=== PATIENT | female | born 1930 | race Caucasian/White ===

== ENCOUNTER → 2016-08-19 | Outpatient (CLI) | payer OTHER, MEDICARE | LOC: FIMAGING 10:03 | PROVIDERS: ATTEND Internal Medicine | DX: Z12.31 Encounter for screening mammogram for malignant neoplasm of breast (principal); Z85.3 Personal history of malignant neoplasm of breast; Z80.3 Family history of malignant neoplasm of breast | CPT/HCPCS: G0202 ==

== ENCOUNTER 2016-12-20 22:54 | Observation (INO) | payer OTHER, MEDICARE ==
--- NOTE | 2016-12-20 23:19 | CPEKG ---
Heart Rate: 83 RR Interval: 723 QRSD Interval: 98 QT Interval: 412 QTC Interval: 485 QRS [place]: 89 T Wave [place]: 4 EKG Severity - ABNORMAL ECG - EKG Impression: ATRIAL FLUTTER, A-RATE 294 EKG Impression: ANTERIOR INFARCT, OLD Electronically Signed By: Caesar Key 21-Dec-2016 05:21:52
--- NOTE | 2016-12-20 23:24 | EDPHY ---
H & P Stated Complaint: Chest Pressure, Dizziness, Shortness of Breathe since 9pm HPI/ROS: Chief Complaint: Chest pain, nausea, clammy HPI: 85-year-old woman with past medical history coronary artery disease, renal insufficiency was in her usual state of health when at 9 o'clock this evening she had the sudden onset of nausea, clamminess and tightness across her chest. It is about a 5/10. She has a history of a myocardial infarction in the past but this is not feel the same. She states she is feeling feeling her heart beat which is unusual for her. No recent illness. No nausea or vomiting. No fevers or chills. No recent changes in her oxygen requirements, she is on supplemental oxygen 24 hours a day. ROS: 10 point Review of Systems is negative except as noted in the HPI. PMH: Type 2 diabetes, asthma, pulmonary fibrosis, coronary artery disease status post stenting in 2003, gastric ulcer, breast cancer, glaucoma Medications: Diovan, simvastatin, Protonix, probenecid, from some I would, cardia, room again, aspirin, Citrucel, Spiriva Social History: No smoking, no alcohol, no recreational drug use Family History: non-contributory Physical Exam: Gen: Awake, Alert, No Distress HEENT: Nose: no rhinorrhea Eyes: PERRLA, EOMI Mouth: Moist mucosa Neck: Supple, no JVD Chest: nontender, lungs clear to auscultation Heart: S1, S2 normal, irregularly irregular, 3 in 6 systolic murmur Abd: Soft, non-tender, no guarding Back: no CVA tenderness, no midline tenderness Ext: no edema, non-tender Skin: no rash Neuro: CN II-XII intact, Sensation grossly intact, Strength 5/5 in bilateral upper and lower extremities - Personal History Tetanus Vaccine Date: 2005 - Medical/Surgical History Hx Asthma: Yes Hx Chronic Respiratory Disease: No Hx Diabetes: Yes Hx Cardiac Disease: Yes Hx Renal Disease: No Hx Cirrhosis: No Hx Alcoholism: No Hx HIV/AIDS: No Hx Splenectomy or Spleen Trauma: No Other PMH: mi stents, gi bleed, trnsfusions, glaucoma, kidney stones, br cancer & surg, knee surg, pna,pulmonary fibrosis. - Social History Smoking Status: Never smoked Constitutional: Initial Vital Signs Temperature (C) 36.6 C 12/20/16 23:13 Heart Rate 82 08/04/17 23:13 Respiratory Rate 15 12/20/16 23:13 Blood Pressure 160/62 H 12/20/16 23:13 O2 Sat (%) 88 L 12/20/16 23:13 O2 Delivery Mode Nasal Cannula O2 (L/minute) 2 Allergies/Adverse Reactions: clopidogrel bisulfate [From Plavix] Allergy (Severe, Verified 05/18/16 11:41) Other-Enter Comments kiwi [Kiwi (Actinidia Chinensis)] Allergy (Severe, Verified 05/18/16 11:41) Anaphylaxis naproxen [Naproxen] Allergy (Intermediate, Verified 05/18/16 11:41) Rash niacin [Niacin] Allergy (Intermediate, Verified 05/18/16 11:41) Rash allopurinol [Allopurinol] Allergy (Unknown, Verified 05/18/16 11:41) Unknown gabapentin [Gabapentin] Allergy (Unknown, Verified 05/18/16 11:41) Unknown metronidazole [Metronidazole] Allergy (Unknown, Verified 05/18/16 11:41) Unknown ethionamide [Ethionamide] Allergy (Verified 05/18/16 11:41) isoniazid Allergy (Verified 05/18/16 11:41) neomycin [Neomycin] Allergy (Verified 05/18/16 11:41) Nitroimidazoles [Nitroimidazole Derivatives] Allergy (Verified 05/18/16 11:41) risedronate sodium Allergy (Verified 05/18/16 11:41) vitamin B complex Allergy (Verified 05/18/16 11:41) CARDIOVASCULAR DRUGS Allergy (Uncoded 05/18/16 11:41) Home Medications: Medication Instructions Recorded Aspirin [Aspirin 81mg (*)] 81 mg PO DAILY 08/17/11 Bimatoprost 0.03% [LUMIGAN 0.03%] 1 drops EACHEYE HS 08/17/11 Furosemide [Lasix 40 MG (*)] 40 mg PO DAILY 08/17/11 Pantoprazole Sodium [Protonix 40mg 40 mg PO DAILY 08/17/11 (*)] Probenecid 500 mg PO BID 08/17/11 Valsartan [Diovan] 160 mg PO DAILY 08/17/11 Diltiazem HCl [Cartia XT 180mg] 180 mg PO BID 10/02/11 Tiotropium Inhaler [Spiriva 1 puffs IH DAILY 10/02/11 Inhaler (RX)] Albuterol [Proventil Inhaler HFA 2 puffs IH DAILY PRN 05/11/15 (*)] Beclomethasone Qvar 40 [Qvar 40 1 puffs IH BID 05/11/15 (*)] Brimonidine Tartrate 1 drop EACHEYE HS 05/11/15 Herbals/Supplements -Info Only 1 ea PO DAILY 05/11/15 Simvastatin [Zocor] 20 mg PO DAILY18 05/11/15 metFORMIN HCL [Glucophage 500 mg 500 mg PO BIDMEAL 05/11/15 (*)] Centrum Complete Multivit Tab 01/16/16 Citracal + D 01/16/16 Cephalexin [Keflex (*)] 500 mg PO TID #21 cap 05/18/16 Medical Decision Making - Diagnostics EKG Interpretation: ECG time 11:16 p.m., atrial flutter with a variable conduction, atrial rate of 294, ventricular rate of 83, no acute ST wave changes. ECG is unchanged as compared to an ECG from 01/16/2016. Imaging Results: Imaging Impressions Chest X-Ray 12/20/16 23:23 Impression: 1. No evidence for aspiration pneumonia. 2. Chronic large hiatal hernia. 3. Cardiomegaly with pulmonary venous hypertension suggests early or impending CHF. Imaging: I viewed and interpreted images myself ED Course/Re-evaluation: 85-year-old woman with new atrial flutter which is ventricularly rate controlled. Chronic renal insufficiency changes. No electrolyte abnormalities at this time. Troponin is negative. Will require admission for further care - Data Points Laboratory Results: Laboratory Results 12/20/16 23:02 12/20/16 23:02 12/20/16 12/20/16 23:02 23:02 WBC 6.39 10^3/uL 10^3/uL (3.80-9.50) RBC 3.69 10^6/uL L 10^6/uL (4.18-5.33) Hgb 11.5 g/dL L g/dL (12.6-16.3) Hct 36.8 % L % (38.0-47.0) MCV 99.7 fL fL (81.5-99.8) MCH 31.2 pg pg (27.9-34.1) MCHC 31.3 g/dL L g/dL (32.4-36.7) RDW 16.2 % H % (11.5-15.2) Plt Count 282 10^3/uL 10^3/uL (150-400) MPV 9.6 fL fL (8.7-11.7) Neut % (Auto) Not Reported Lymph % (Auto) Not Reported [place] % (Auto) Not Reported Eos % (Auto) Not Reported Baso % (Auto) Not Reported Nucleat RBC Rel Count 0.0 % % (0.0-0.2) Absolute Neuts (auto) Not Reported Absolute Lymphs (auto) Not Reported Absolute Monos (auto) Not Reported Absolute Eos (auto) Not Reported Absolute Basos (auto) Not Reported Absolute Nucleated RBC 0.00 10^3/uL 10^3/uL (0-0.01) Immature Gran % Not Reported Seg Neutrophils % 54 % % Band Neutrophils % 12 % % Lymphocytes % 28 % % Monocytes % 4 % % Eosinophils % 2 % % Immature Gran # Not Reported Absolute Seg Neuts 3.45 10^/uL 10^/uL (1.70-6.50) Absolute Band Neuts 0.77 10^3/uL H 10^3/uL (0.00-0.70) Absolute Lymphocytes 1.79 10^3/uL 10^3/uL (1.00-3.00) Absolute Monocytes 0.26 10^3/uL L 10^3/uL (0.30-0.80) Absolute Eosinophils 0.13 10^3/uL 10^3/uL (0.03-0.40) Platelet Estimate ADEQUATE (ADEQ) Hypochromasia 1+ H Sodium 144 mEq/L mEq/L (134-144) Potassium 4.5 mEq/L mEq/L (3.5-5.2) Chloride 101 mEq/L mEq/L (97-110) Carbon Dioxide 27 mEq/l mEq/l (22-31) Anion Gap 16 mEq/L mEq/L (8-16) BUN 33 mg/dL H mg/dL (7-23) Creatinine 1.7 mg/dL H mg/dL (0.6-1.0) Estimated GFR 29 Glucose 98 mg/dL mg/dL (70-100) Calcium 10.4 mg/dL mg/dL (8.5-10.4) Troponin I < 0.012 ng/mL ng/mL (0-0.034) Departure - Departure Disposition: [facility] Inpatient Acute Clinical Impression: Atrial flutter Condition: Fair Referrals: Terrance Peguero MD [Primary Care Provider] - As per Instructions
[2016-12-20 23:34] LABS: ADD MORPH? NO; ATYPICAL LYMPHOCYTE FLAG 0 (0-99); FRAGMENT RBC FLAG 0 (0-99); HEMOGLOBIN 11.5 g/dL (12.6-16.3); LIPEMIA HEMOLYSIS FLAG 80 (0-99); MEAN CELL HEMOGLOBIN 31.2 pg (27.9-34.1); MEAN PLATELET VOLUME 9.6 fL (8.7-11.7); PLATELET CLUMPS FLAG 0 (0-99); RED BLOOD CELL COUNT 3.69 10^6/uL (4.18-5.33); RED CELL DISTRIBUTION WIDTH 16.2 % (11.5-15.2)
[2016-12-20 23:45] LABS: HEMATOCRIT 36.8 % (38.0-47.0); MEAN CELL HEMOGLOBIN CONCENTR. 31.3 g/dL (32.4-36.7); MEAN CELL VOLUME 99.7 fL (81.5-99.8); PLATELET COUNT 282 10^3/uL (150-400)
[2016-12-20 23:46] LABS: ADD DIFF? YES; ADD SCAN? NO; LEFT SHIFT FLG 100 (0-99)
[2016-12-20 23:59] LABS: ANION GAP 16 mEq/L (8-16); CALCIUM 10.4 mg/dL (8.5-10.4); CARBON DIOXIDE 27 mEq/l (22-31); CHLORIDE 101 mEq/L (97-110); CREATININE 1.7 mg/dL (0.6-1.0); GLOMERULAR FILTRATION RATE 29; GLUCOSE 98 mg/dL (70-100); POTASSIUM 4.5 mEq/L (3.5-5.2); SODIUM 144 mEq/L (134-144)
[2016-12-21 00:12] LABS: HYPOCHROMIA 1+; PLATELET ESTIMATE ADEQUATE (ADEQ)
[2016-12-21 00:18] LABS: TROPONIN I < 0.012 ng/mL (0-0.034)
[2016-12-21] MEDS ORDERED: ONDANSETRON DISINTEGRATING 4 MG TAB PO PRN (01:16)
[2016-12-21] MEDS ORDERED: ONDANSETRON 4 MG/2 ML VIAL IVP PRN (01:16)
[2016-12-21] MEDS ORDERED: ACETAMINOPHEN 325 MG TAB PO PRN (01:16)
--- NOTE | 2016-12-21 03:11 | PDGENHP ---
History and Physical - Chief Complaint Nausea, fatigue, chest tightness - History of Present Illness 85 yo F w/ hx of CAD, pulmonary fibrosis, DM, and HTN presenting with acute onset nausea, fatigue, chest tightness followed by frequent watery diarrhea. Patient was in usual state of health until 10 PM on the night of admission when she felt sudden onset nausea and fatigue. She stood up to vomit but could only dry heave. During this period she also experienced some mild chest tightness. This tightness was mild, steady, did not vary with exertion, and was very different from her prior ME, which presented with typical chest pain. Then, en route to the ED w/ EMS, she began to experience frequent, watery diarrhea. This diarrhea continued for several more episodes after arrival to the ED. Of note, she had [employer] food for lunch and she lives in a nursing facility. History Information - Allergies/Home Medication List Allergies/Adverse Reactions: clopidogrel bisulfate [From Plavix] Allergy (Severe, Verified 05/18/16 11:41) Other-Enter Comments kiwi [Kiwi (Actinidia Chinensis)] Allergy (Severe, Verified 05/18/16 11:41) Anaphylaxis naproxen [Naproxen] Allergy (Intermediate, Verified 05/18/16 11:41) Rash niacin [Niacin] Allergy (Intermediate, Verified 05/18/16 11:41) Rash allopurinol [Allopurinol] Allergy (Unknown, Verified 05/18/16 11:41) Unknown gabapentin [Gabapentin] Allergy (Unknown, Verified 05/18/16 11:41) Unknown metronidazole [Metronidazole] Allergy (Unknown, Verified 05/18/16 11:41) Unknown ethionamide [Ethionamide] Allergy (Verified 05/18/16 11:41) isoniazid Allergy (Verified 05/18/16 11:41) neomycin [Neomycin] Allergy (Verified 05/18/16 11:41) Nitroimidazoles [Nitroimidazole Derivatives] Allergy (Verified 05/18/16 11:41) risedronate sodium Allergy (Verified 05/18/16 11:41) vitamin B complex Allergy (Verified 05/18/16 11:41) CARDIOVASCULAR DRUGS Allergy (Uncoded 05/18/16 11:41) Home Medications: Aspirin [Aspirin 81mg (*)] 81 mg PO DAILY 08/17/11 [Last Taken 05/10/15] Bimatoprost 0.03% [LUMIGAN 0.03%] 1 drops EACHEYE HS 08/17/11 [Last Taken ] Furosemide [Lasix 40 MG (*)] 40 mg PO DAILY 08/17/11 [Last Taken 01/15/16 07:00] Pantoprazole Sodium [Protonix 40mg (*)] 40 mg PO DAILY 08/17/11 [Last Taken ] Probenecid 500 mg PO BID 08/17/11 [Last Taken 05/10/15] Valsartan [Diovan] 160 mg PO DAILY 08/17/11 [Last Taken 05/10/15] Diltiazem HCl [Cartia XT 180mg] 180 mg PO BID 10/02/11 [Last Taken 10/02/11 09: 30] Tiotropium Inhaler [Spiriva Inhaler (RX)] 1 puffs IH DAILY 10/02/11 [Last Taken 05/10/15] Albuterol [Proventil Inhaler HFA (*)] 2 puffs IH DAILY PRN 05/11/15 [Last Taken Unknown] Beclomethasone Qvar 40 [Qvar 40 (*)] 1 puffs IH BID 05/11/15 [Last Taken ] Brimonidine Tartrate 1 drop EACHEYE HS 05/11/15 [Last Taken 05/10/15] Herbals/Supplements -Info Only 1 ea PO DAILY 05/11/15 [Last Taken Unknown] Simvastatin [Zocor] 20 mg PO DAILY18 05/11/15 [Last Taken 05/10/15] metFORMIN HCL [Glucophage 500 mg (*)] 500 mg PO BIDMEAL 05/11/15 [Last Taken 18:00] Centrum Complete Multivit Tab 01/16/16 [Last Taken Unknown] Citracal + D 01/16/16 [Last Taken Unknown] I have personally reviewed and updated: family history, medical history - Past Medical History coronary artery disease, diabetes type 2 Additional medical history: Pulmonary fibrosis - Family History Positive for: CAD - Social History Smoking Status: Never smoked Alcohol Use: None Drug Use: None Review of Systems ROS: 10pt was reviewed & negative except for what was stated in HPI & below Physical Exam Temp Pulse Resp BP Pulse Ox 37.2 C 72 18 140/72 H 96 08/05/17 01:45 12/21/16 01:45 12/21/16 01:45 12/21/16 01:45 12/21/16 01:45 O2 (L/minute) 2 Constitutional: no apparent distress, not in pain Eyes: PERRL, EOMI Ears, Nose, Mouth, Throat: moist mucous membranes, no oral mucosal ulcers Cardiovascular: regular rate and rhythym, systolic murmur (3/6 @ RUSB border, systolic) Respiratory: no respiratory distress, clear to auscultation, other (small respiratory volumes) Gastrointestinal: normoactive bowel sounds, soft, non-tender abdomen Skin: warm, no rashes or abrasions Musculoskeletal: full muscle strength, no muscle tenderness Neurologic: AAOx3, CN II-XII Intact Psychiatric: interacting appropriately, not anxious Lab Data & Imaging Review 12/20/16 23:02 12/20/16 23:02 WBC 6.39 10^3/uL (3.80-9.50) 12/20/16 23:02 RBC 3.69 10^6/uL (4.18-5.33) L 12/20/16 23:02 Hgb 11.5 g/dL (12.6-16.3) L 12/20/16 23:02 Hct 36.8 % (38.0-47.0) L 12/20/16 23:02 MCV 99.7 fL (81.5-99.8) 12/20/16 23:02 MCH 31.2 pg (27.9-34.1) 12/20/16 23:02 MCHC 31.3 g/dL (32.4-36.7) L 12/20/16 23:02 RDW 16.2 % (11.5-15.2) H 12/20/16 23:02 Plt Count 282 10^3/uL (150-400) 12/20/16 23:02 MPV 9.6 fL (8.7-11.7) 12/20/16 23:02 Neut % (Auto) Not Reported 12/20/16 23:02 Lymph % (Auto) Not Reported 12/20/16 23:02 [place] % (Auto) Not Reported 12/20/16 23:02 Eos % (Auto) Not Reported 12/20/16 23:02 Baso % (Auto) Not Reported 12/20/16 23:02 Nucleat RBC Rel Count 0.0 % (0.0-0.2) 12/20/16 23:02 Absolute Neuts (auto) Not Reported 12/20/16 23:02 Absolute Lymphs (auto) Not Reported 12/20/16 23:02 Absolute Monos (auto) Not Reported 12/20/16 23:02 Absolute Eos (auto) Not Reported 12/20/16 23:02 Absolute Basos (auto) Not Reported 12/20/16 23:02 Absolute Nucleated RBC 0.00 10^3/uL (0-0.01) 12/20/16 23:02 Immature Gran % Not Reported 12/20/16 23:02 Seg Neutrophils % 54 % 12/20/16 23:02 Band Neutrophils % 12 % 12/20/16 23:02 Lymphocytes % 28 % 12/20/16 23:02 Monocytes % 4 % 12/20/16 23:02 Eosinophils % 2 % 12/20/16 23:02 Immature Gran # Not Reported 12/20/16 23:02 Absolute Seg Neuts 3.45 10^/uL (1.70-6.50) 12/20/16 23:02 Absolute Band Neuts 0.77 10^3/uL (0.00-0.70) H 12/20/16 23:02 Absolute Lymphocytes 1.79 10^3/uL (1.00-3.00) 12/20/16 23:02 Absolute Monocytes 0.26 10^3/uL (0.30-0.80) L 12/20/16 23:02 Absolute Eosinophils 0.13 10^3/uL (0.03-0.40) 12/20/16 23:02 Platelet Estimate ADEQUATE (ADEQ) 12/20/16 23:02 Hypochromasia 1+ H 12/20/16 23:02 Sodium 144 mEq/L (134-144) 12/20/16 23:02 Potassium 4.5 mEq/L (3.5-5.2) 12/20/16 23:02 Chloride 101 mEq/L (97-110) 12/20/16 23:02 Carbon Dioxide 27 mEq/l (22-31) 12/20/16 23:02 Anion Gap 16 mEq/L (8-16) 12/20/16 23:02 BUN 33 mg/dL (7-23) H 12/20/16 23:02 Creatinine 1.7 mg/dL (0.6-1.0) H 12/20/16 23:02 Estimated GFR 29 12/20/16 23:02 Glucose 98 mg/dL (70-100) 12/20/16 23:02 Calcium 10.4 mg/dL (8.5-10.4) 12/20/16 23:02 Troponin I < 0.012 ng/mL (0-0.034) 12/20/16 23:02 Visualized and Interpreted EKG results: Yes EKG Interpretation: Positive for: other (Aflutter with variable block) Assessment & Plan Assessment: 85 yo F w/ CAD, pulmonary fibrosis, HTN, and T2DM presents with acute onset nausea, fatigue, and watery diarrhea; found to be in new aflutter with variable block upon arrival to ED. Plan: 1. Aflutter - New diagnosis, rate controlled with variable block. Patient and son deny prior hx of arrhythmias. Unclear if this is responsible for presenting symptoms or an incidental finding. [id number] of 6, clearly providing strong indication for anticoagulation. Troponin negative on admission. - Trend troponin - Cardiology consult, may benefit from cardioversion if truly symptomatic - Primary air route controller Dr. Ryena, will defer conversation about chronic AC to cardiology service - Will order TTE noting none in our system, normal systolic function and only diastolic dysfunction noted on 01/01 LHC 2. Diarrhea - Frequent, watery diarrhea with acute onset in the hour prior to presentation. It is possible this was driving presenting symptoms. Patient had [employer] food earlier in the day, so this may represent food poisoning. Although she denies recent antibiotics, she does live in a nursing facility and is at risk for C. Diff. - GI PCR pending 3. Hx of CAD - On ASA, statin, CCB, ARB as outpatient. Trending troponin as above. 4. Pulmonary fibrosis, CHRF - On multiple respiratory medications. 2 L/min O2 via NC continuously at baseline. 5. Diastolic dysfunction - Noted on 01/01 LHC; on furosemide 40 mg PO daily as outpatient. 6. T2DM - On Metformin Diet - NPO in case needs AJAY/cardioversion Ppx - LMWH for now, will need therapeutic AC moving forward Code - Full Dispo - Admit to OBS, predict quick turnaround with possible cardioversion and medication adjustment
[2016-12-21 04:11] LABS: % IMMATURE GRANULYOCYTES 0.2 % (0.0-1.1); ABSOLUTE IMMATURE GRANULOCYTES 0.02 10^3/uL (0.00-0.10); ADD DIFF? NO; ADD MORPH? NO; ADD SCAN? NO; ATYPICAL LYMPHOCYTE FLAG 0 (0-99); FRAGMENT RBC FLAG 0 (0-99); HEMATOCRIT 31.5 % (38.0-47.0); HEMOGLOBIN 9.5 g/dL (12.6-16.3); LEFT SHIFT FLG 80 (0-99); LIPEMIA HEMOLYSIS FLAG 80 (0-99); MEAN CELL HEMOGLOBIN 30.8 pg (27.9-34.1); MEAN CELL HEMOGLOBIN CONCENTR. 30.2 g/dL (32.4-36.7); MEAN CELL VOLUME 102.3 fL (81.5-99.8); MEAN PLATELET VOLUME 9.6 fL (8.7-11.7); PLATELET CLUMPS FLAG 0 (0-99); PLATELET COUNT 222 10^3/uL (150-400); RED BLOOD CELL COUNT 3.08 10^6/uL (4.18-5.33); RED CELL DISTRIBUTION WIDTH 16.4 % (11.5-15.2)
[2016-12-21 04:13] LABS: ANION GAP 11 mEq/L (8-16); CARBON DIOXIDE 25 mEq/l (22-31); CHLORIDE 106 mEq/L (97-110); CREATININE 1.5 mg/dL (0.6-1.0); GLOMERULAR FILTRATION RATE 33; GLUCOSE 114 mg/dL (70-100); MAGNESIUM 2.1 mg/dL (1.6-2.3); POTASSIUM 4.6 mEq/L (3.5-5.2); SODIUM 142 mEq/L (134-144)
[2016-12-21 04:24] LABS: TROPONIN I 0.012 ng/mL (0-0.034)
[2016-12-21] MEDS ORDERED: ENOXAPARIN 30 MG/0.3 ML SYR SC SCH (09:00)
[2016-12-21 09:38] LABS: COLOR YELLOW; LEUKOCYTE ESTERASE,URINE TRACE (NEGATIVE); NITRITE,URINE NEGATIVE (NEGATIVE)
[2016-12-21 09:41] LABS: MUCUS TRACE /lpf (NONE-1+)
--- NOTE | 2016-12-21 11:40 | PDCARPN ---
Cardiology Progress Note Chief Complaint: fatigue, atrial flutter. Assessment/Plan: Assessment: 1. Coronary artery disease status post PCI, recent coronary angiography showing patent stents. 2. renal insufficiency 3. Chronic anemia with a history of GI bleed more than 10 years ago 4. Atrial flutter in the setting of acute illness (diarrhea) Plan: - Single self terminating episode of atrial flutter that happened with acute illness i.e. diarrhea. Episode of atrial flutter cut shehas spontaneously converted to sinus rhythm. She is currently anemic with a hemoglobin of 9.5. She has had a history of significant GI bleed in the past, requiring blood transfusion. I would like her to have a 1 month monitor to assess whether she is having any episodes of atrial flutter outside of acute illness. At this time , given anemia and history of GI bleed, risk benefit ratio argues against using lifelong anticoagulation for a single episode of atrial flutter in the setting of acute illness. If on the 1 month monitor, she shows atrial flutter atrial fibrillation, consideration to be given to initiating anticoagulation. I have sent a task to her sausage linker Dr. Jay Reyna and his nurse Bradley Jovel RN in [place] to follow up on this. 12/21/16 11:36 Subjective: 85-year-old female, known to our practice. She sees Dr. Jay Reyna as an outpatient. She has a history of coronary artery disease, status post PCI, pulmonary hypertension, recent coronary angiography showing no significant progression of her disease. She was admitted yesterday after bouts of recurrent diarrhea and was found to be in atrial flutter. This morning, her atrial flutter has terminated spontaneously. Dr. Tim Fu has asked me to see the patient to give guidance regarding long-term anticoagulation. Reviewed/Discussed With: hospitalist Time Spent With Patient: 30 minutes Objective: Vital Signs (8 Hrs) Temp Pulse Resp BP Pulse Ox 12/21/16 08:00 36.8 C 66 16 132/51 H 85 L 12/21/16 03:50 36.6 C 66 18 129/84 H 98 Intake/Output (24 Hrs) 12/19/16 12/20/16 12/21/16 11:59 11:59 11:59 Intake Total 100 Balance 100 Intake: Oral (ml) 100 Other: Weight 70.9 kg Number of Voids Toilet 1 Number of Stools Toilet 1 Result Diagrams: 12/21/16 03:14 12/21/16 03:14 Cardiac Labs: Cardiac Lab Results (72 Hrs) 12/21/16 03:14 Troponin I 0.012 EKG: atrial flutter with controlled ventricular response Telemetry: sinus rhythm ICD10 Worksheet Patient Problems: Problems Problem Status Onset Chest pain Acute Pain in left shoulder Acute History of coronary artery disease Acute Atrial flutter Acute
[2016-12-21 11:59] VITALS: BP 138/53; PULSE 67; RESP 18; TEMP 98.1; O2SAT 100
--- NOTE | 2016-12-21 12:38 | GDS ---
[f rep st] DISCHARGE SUMMARY DISCHARGE DIAGNOSES: 1. Acute diarrhea, resolved. 2. Resolved atrial flutter. 3. History of coronary artery disease. 4. Pulmonary fibrosis. 5. Diastolic dysfunction. 6. Type 2 diabetes mellitus, on metformin. CONSULTANTS: Dr. Jagjit Truong, Cardiology. HOSPITAL COURSE BY PROBLEM: 1. Diarrhea: The patient presented to the hospital with perfuse watery diarrhea. GI pathogen pane l was done that did not detect any organisms. Currently, the patient's diarrhea has resolved. If s he continues to have diarrhea, it would be reasonable for her to trial Imodium. 2. Atrial flutter: Prior to discharge, the patient was seen by Dr. Truong who thought it was reasonab le for her to be discharged with a Holter monitor that will be placed on Friday. She should follow up, with her primary senior linux unix engineer, Dr. Reyna, in 2 weeks. Anticoagulation was not recommended in light of her history of GI bleeding and mild anemia on presentation. PHYSICAL EXAM: VITAL SIGNS: Blood pressure 138/53, pulse 67, respiratory rate 18, O2 sat 100% on 2 L. ABDOMEN: Soft, nontender, nondistended. No guarding or rebound tenderness. Normoactive bowel sounds. LABORATORY DATA: Pertinent labs and studies done this hospital stay, chest x-ray done 12/20/2016, s howed a hiatal hernia. No evidence for aspiration pneumonia. There was some mild cardiomegaly with pulmonary venous hypertension. DISCHARGE MEDICATIONS: Please refer to discharge medication reconciliation in [facility] for details. DISCHARGE INSTRUCTIONS: Patient will be discharged from the hospital where she should follow up at [facility] on Friday for a Holter monitor. She should seek medical attention if her diarrhea per sists. /[id number]/MODL
--- NOTE | 2016-12-21 13:48 | ECHO ---
[id number] + + [address] : : [place] [address] : : [phone] + Adult Echocardiographic Report + -----+ :Name: DONIS MICHELLE Zhen Date: 12/21/2016 08:28 AM : : Hospital Admission Number: [id number] : :: 1930 Gender: Female Height: 60 in : :Age: 85 yrs Race: WH Weight: 156 lb : :Reason For Study: New atrial flutter : : BSA: 1.7 me ters2: + -----+ MMode/2D Measurements \T\ Calculations IVSd: 1.1 cm LVIDd: 4.0 cm FS: 40.9 % MV Diam: 3.0 cm LVPWd: 1.1 cm LVIDs: 2.4 cm EDV(Teich): 70.1 ml ESV(Teich): 19.4 ml EF(Teich): 72.3 % Ao root diam: LVOT diam: 1.9 cmLVLd ap4: 6.3 cm SV(MOD-sp4): 2.7 cm LVOT area: EDV(MOD-sp4): 47.0 ml LA dimension: 2.9 cm2 64.0 ml 3.8 cm LVLs ap4: 5.8 cm ESV(MOD-sp4): 17.0 ml EF(MOD-sp4): 73.4 % Normal Measurement Values: + + :LVIDd (3.5-5.7cm) IVSd (0.6-1.1cm) LVPWd (0.6-1.1cm) Aortic Root (2.0-3.7cm)Left Atrium (1.5-4.0cm): :LV Vol(d) (76-115ml) LV Vol(s) (29-48ml) Ejec Fraction (50-65%)PV Flo (0.6- 1.2m/s) TV Flo (0.4-1.0m/s) : :MV E Flo (0.8-1.0m/s)MV A Flo (0.3-1.0m/s)LVOT Flo (0.7-1.2m/s) Asc Ao Flo ( 0.9-1.8m/s) : + + Doppler Measurements \T\ Calculations MV V2 mean: Ao mean PG: LV V1 max: MR max flo: 101.0 cm/sec 7.8 mmHg 118.0 cm/sec 451.5 cm/sec MV mean P.1 mmHgAo V2 mean: LV V1 max PG: MR max PG: MV V2 VTI: 62.2 cm 131.6 cm/sec 5.6 mmHg 81.5 mmHg MV area (1 diam): Ao V2 VTI: 46.8 cm LV V1 mean P.9 cm2 FRIEDA(I,D): 2.1 cm2 3.5 mmHg LV V1 mean: MVA(VTI): 1.5 cm2 89.0 cm/sec MV Flow area(1diam): LV V1 VTI: 33.2 cm 6.9 cm2 MR(RF 1 diam): 1.9 %SV(MV 1 diam): TR max flo: RF(MV,Ao)(1 diam): 428.8 ml 254.9 cm/sec 0.37 SI(MV 1 diam): TR max PG: RF(MV,LVOT) 255.3 ml/m2 26.0 mmHg (1diam): 0.78 SV(LVOT): 96.4 ml RAP systole: 5.0 mmHg RVSP(TR): 31.0 mmHg Left Ventricle The left ventricle is normal in size. There is mild concentric left ventricular hypertrophy. Left ventricular systolic function is normal. Ejection Fraction = 65-70%. No regional wall motion abnormalities noted. Right Ventricle The right ventricle is normal in size and function. Atria The left atrium is mildly dilated. Right atrial size is normal. The interatrial septum is intact with no evidence for an atrial septal defect. Mitral Valve Calcified mitral apparatus. There is no evidence of mitral valve prolapse. There is no mitral valve stenosis. There is mild to moderate mitral regurgitation. Tricuspid Valve Normal tricuspid valve. There is mild tricuspid regurgitation. Aortic Valve The aortic valve is trileaflet. The aortic valve opens well. Mild to moderate aortic calcification. There is no aortic stenosis. There is no aortic insufficiency. Pulmonic Valve The pulmonic valve is normal in structure and function. There is no pulmonic valvular regurgitation. Great Vessels The aortic root is normal size. Pericardium/Pleural There is no pericardial effusion. Conclusion A complete two-dimensional transthoracic echocardiogram was performed (2D, M-mode, Doppler and color flow Doppler). Left ventricular systolic function is normal. There is mild concentric left ventricular hypertrophy. Ejection Fraction = 65-70%. The left atrium is mildly dilated. Calcified mitral apparatus. There is mild to moderate mitral regurgitation. There is mild tricuspid regurgitation - normal estimated RVSP. Mild to moderate aortic calcification. Final Reading Physician: Jagjit Truong MD electronically signed on 12/21/2016 01:47 PM Ordering Physician: Familia Chua Performed By: Sarah Randall RDCS
[2016-12-21] MEDS ORDERED: [UNRECOGNIZED DRUG - OTHER] PO SCH (21:00)
[2016-12-21] MEDS ORDERED: BIMATOPROST 0.01% 2.5 ML OPHT.BTL EACHEYE SCH (21:00)
[2016-12-21] MEDS ORDERED: PROBENECID 500 MG TAB PO SCH (21:00)
[2016-12-21] MEDS ORDERED: CALCIUM CITRATE PO SCH (21:00)
[2016-12-21] MEDS ORDERED: CHOLECALCIFEROL PO SCH (21:00)
[2016-12-21] MEDS ORDERED: DILTIAZEM CD 180 MG CAP PO SCH (21:00)
[2016-12-21] MEDS ORDERED: CALCIUM CARBONATE 500 MG TAB PO SCH (21:00)
[2016-12-22] MEDS ORDERED: VALSARTAN 80 MG TAB PO SCH (09:00)
[2016-12-22] MEDS ORDERED: TIOTROPIUM INHALER 18 MCG/DOSE 5 DOSE/MDI IH SCH (09:00)
[2016-12-22] MEDS ORDERED: ASPIRIN 81 MG CHEWABLE TAB PO SCH (09:00)
[2016-12-22] MEDS ORDERED: FUROSEMIDE 40 MG TAB PO SCH (09:00)
[2016-12-22] MEDS ORDERED: ATORVASTATIN CALCIUM 20 MG TAB PO SCH (09:00)
[2016-12-22] MEDS ORDERED: PANTOPRAZOLE SODIUM 40 MG TAB PO SCH (09:00)
[2016-12-22] MEDS ORDERED: NON-FORMULARY NEW DRUG (Simvastatin [Zocor] 40 MG) PO SCH (09:00)
== END 2016-12-21 14:32 | disposition home or self-care (01) ==
LOC: EDUNIT# → F2W 12-21 01:27
PROVIDERS: ADMIT Student in an Organized Health Care Education/Training Program; ATTEND Family Medicine
DX: I48.92 Unspecified atrial flutter (principal); R19.7 Diarrhea, unspecified; R53.83 Other fatigue; I25.10 Atherosclerotic heart disease of native coronary artery without angina pectoris; J84.10 Pulmonary fibrosis, unspecified; I51.9 Heart disease, unspecified; I27.2 Other secondary pulmonary hypertension; D64.9 Anemia, unspecified; N18.9 Chronic kidney disease, unspecified; I12.9 Hypertensive chronic kidney disease with stage 1 through stage 4 chronic kidney disease, or unspecified chronic kidney disease; E11.22 Type 2 diabetes mellitus with diabetic chronic kidney disease; J45.909 Unspecified asthma, uncomplicated; K44.9 Diaphragmatic hernia without obstruction or gangrene; I25.2 Old myocardial infarction; H40.9 Unspecified glaucoma; Z79.82 Long term (current) use of aspirin; Z85.3 Personal history of malignant neoplasm of breast; Z87.442 Personal history of urinary calculi; Z79.84 Long term (current) use of oral hypoglycemic drugs; Z95.5 Presence of coronary angioplasty implant and graft; Z99.81 Dependence on supplemental oxygen
CPT/HCPCS: 71020; 93005; 93306; 97165; 99285; G0378; G8987; G8988; G8989; J1650

== ENCOUNTER → 2017-01-28 | Outpatient (CLI) | payer OTHER, MEDICARE | LOC: FIMAGING 10:15 | PROVIDERS: ATTEND Internal Medicine Critical Care Medicine | DX: J47.9 Bronchiectasis, uncomplicated (principal); J84.112 Idiopathic pulmonary fibrosis; K44.9 Diaphragmatic hernia without obstruction or gangrene ==

== ENCOUNTER → 2017-04-03 | Outpatient (CLI) | payer OTHER, MEDICARE | LOC: FIMAGING 09:50 | PROVIDERS: ATTEND Internal Medicine | DX: N63.10 Unspecified lump in the right breast, unspecified quadrant (principal) | CPT/HCPCS: 76641; G0206 ==

== ENCOUNTER → 2017-09-23 | Outpatient (CLI) | payer OTHER, MEDICARE | LOC: FIMAGING 10:43 | PROVIDERS: ATTEND Internal Medicine | DX: Z12.31 Encounter for screening mammogram for malignant neoplasm of breast (principal); Z85.3 Personal history of malignant neoplasm of breast ==

== ENCOUNTER → 2017-10-03 | Outpatient (CLI) | payer OTHER, MEDICARE | LOC: FIMAGING 10:09 | PROVIDERS: ATTEND Internal Medicine | DX: N63.20 Unspecified lump in the left breast, unspecified quadrant (principal) ==

== ENCOUNTER → 2017-10-15 | Outpatient (CLI) | payer OTHER, MEDICARE ==
[~2017-10-15] MED LIST: BUPIVACAINE 0.5% 30 ML SDV ONE; LIDOCAINE 1% 300 MG/30 ML SDV ONE; THROMBIN (BOVINE) 5,000 UNIT VIAL TP ONE
== END ==
LOC: FIMAGING 07:16
PROVIDERS: ATTEND Internal Medicine
PROC: BH01ZZZ Plain Radiography of Left Breast (ICD-10-PCS; principal; 2017-10-15)
PROC: 0HBU3ZX Excision of Left Breast, Percutaneous Approach, Diagnostic (ICD-10-PCS; principal; 2017-10-15)
DX: C50.912 Malignant neoplasm of unspecified site of left female breast (principal); Z85.3 Personal history of malignant neoplasm of breast; Z80.3 Family history of malignant neoplasm of breast; Z17.1 Estrogen receptor negative status [ER-]

== ENCOUNTER → 2017-11-07 | Outpatient (CLI) | payer OTHER, MEDICARE | LOC: BHFA 15:00 | PROVIDERS: ATTEND Internal Medicine Interventional Cardiology | DX: I25.10 Atherosclerotic heart disease of native coronary artery without angina pectoris (principal); Z95.5 Presence of coronary angioplasty implant and graft; I48.91 Unspecified atrial fibrillation; J44.9 Chronic obstructive pulmonary disease, unspecified ==

== ENCOUNTER 2017-11-21 06:21 | Observation (INO) | payer OTHER, MEDICARE ==
[2017-11-21] MEDS ORDERED: ceFAZolin 2 GM/DEXTROSE 100 ML IV ONE (06:44)
[2017-11-21] MEDS ORDERED: LR 1,000 ML IV ONE (06:45)
[2017-11-21] MEDS ORDERED: LIDOCAINE 1% 300 MG/30 ML SDV ONE ×2 (07:30→12:02)
--- NOTE | 2017-11-21 11:58 | PDHPUP ---
History & Physical Update H&P update statement: This history and physical update is based on an assessment of the patient which was completed after admission or registration (within 24 hours), but prior to the surgery/procedure. H&P update: H&P reviewed & patient examined, no change in patient's condition since H&P completed
[2017-11-21] MEDS ORDERED: NA BICARBONATE 50 MEQ/50 ML VIAL ONE (12:02)
[2017-11-21] MEDS ORDERED: THROMBIN (BOVINE) 5,000 UNIT VIAL TP ONE (12:02)
[2017-11-21] MEDS ORDERED: METHYLENE BLUE 0.5% 50 MG/10 ML AMP ONE (12:02)
[2017-11-21] MEDS ORDERED: HYDROGEN PEROXIDE 236 ML BOTTLE TP ONE (12:02)
[2017-11-21] MEDS ORDERED: BUPIVACAINE 0.25% 30 ML SDV ONE ×2 (12:02→13:37)
[2017-11-21] MEDS ORDERED: fentaNYL 100 MCG/2 ML INJ ONE ×2 (12:16→14:56)
[2017-11-21] MEDS ORDERED: PROPOFOL/EMULSION 500 MG/50 ML BOTTLE IV ONE (12:17)
--- NOTE | 2017-11-21 12:37 | PDANEPAE ---
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, asthma - Neurologic History Hx Cerebrovascular Accident: No Hx Seizures: No Hx Dementia: No - Endocrine History Hx Diabetes: Yes Endocrine History Comment: DM 2 - Renal History Hx Renal Disorders: Yes Renal History Comment: hx of kidney surgery - Liver History Hx Hepatic Disorders: No - Neurological & Psychiatric Hx Hx Neurological and Psychiatric Disorders: No - Cancer History Hx Cancer: Yes Cancer History Comment: breast cancer 1993 - Congenital Disorder History Hx Congenital Disorders: No - GI History Hx Gastrointestinal Disorders: Yes Gastrointestinal History Comment: stomach bleeding - Chronic Pain History Chronic Pain: No - Surgical History Prior Surgeries: left kidney, knee surgery, breast surgery, hysterectomy ANE Review of Systems Review of Systems: - Exercise capacity METS (RN): 2 METS ANE Patient History - Allergies Allergies/Adverse Reactions: clopidogrel bisulfate [From Plavix] Allergy (Severe, Verified 05/18/16 11:41) Other-Enter Comments kiwi [Kiwi (Actinidia Chinensis)] Allergy (Severe, Verified 05/18/16 11:41) Anaphylaxis niacin [Niacin] Allergy (Severe, Verified 11/21/17 07:16) Rash naproxen [Naproxen] Allergy (Intermediate, Verified 05/18/16 11:41) Rash allopurinol [Allopurinol] Allergy (Unknown, Verified 05/18/16 11:41) Unknown gabapentin [Gabapentin] Allergy (Unknown, Verified 05/18/16 11:41) Unknown metronidazole [Metronidazole] Allergy (Unknown, Verified 05/18/16 11:41) Unknown ethionamide [Ethionamide] Allergy (Verified 05/18/16 11:41) isoniazid Allergy (Verified 05/18/16 11:41) neomycin [Neomycin] Allergy (Verified 05/18/16 11:41) Nitroimidazoles [Nitroimidazole Derivatives] Allergy (Verified 05/18/16 11:41) risedronate sodium Allergy (Verified 05/18/16 11:41) vitamin B complex Allergy (Verified 05/18/16 11:41) CARDIOVASCULAR DRUGS Allergy (Uncoded 05/18/16 11:41) - Home Medications Home Medications: Aspirin [Aspirin 81mg (*)] 81 mg PO DAILY 12/21/16 [Last Taken 11/20/17] Bimatoprost 0.01% [Lumigan 0.01% (*)] 1 drops EACHEYE HS 12/21/16 [Last Taken ] Calcium Citrate W/Vit D [Citracal + D] 315 mg PO BID 12/21/16 [Last Taken ] Diltiazem HCl [Cartia Xt] 360 mg PO BID 12/21/16 [Last Taken 12/20/16] Furosemide [Lasix 40 MG (*)] 40 mg PO DAILY 12/21/16 [Last Taken 11/20/17] Pantoprazole Sodium [Protonix 40mg (*)] 40 mg PO DAILY 12/21/16 [Last Taken 10/03] Probenecid [Probenecid 500mg (*)] 500 mg PO BID 12/21/16 [Last Taken 11/20/17] Simvastatin [Zocor] 40 mg PO DAILY 12/21/16 [Last Taken 11/20/17] Tiotropium Inhaler [Spiriva Handihaler] 18 mcg IH DAILY 12/21/16 [Last Taken 1 Year Ago ~11/21/16] Valsartan [Diovan (*)] 80 mg PO DAILY 12/21/16 [Last Taken 11/21/17] - NPO status NPO Since - Liquids (Date): 11/21/17 NPO Since - Liquids (Time): 06:00 NPO Since - Solids (Date): 11/20/17 NPO Since - Solids (Time): 20:00 - Smoking Hx Smoking Status: Never smoked - Family Anes Hx Family Hx Anesthesia Complications: mother had a difficulty time waking up ANE Labs/Vital Signs - Vital Signs Blood Pressure: 172/66 Heart Rate: 68 Respiratory Rate: 14 O2 Sat (%): 95 Height: 152.4 cm Weight: 63.503 kg ANE Physical Exam - Airway Mallampati Score: Class 2 Mouth exam: normal dental/mouth exam - Pulmonary Pulmonary: no respiratory distress, no rales or rhonchi, clear to auscultation, reduced air movement - Cardiovascular Cardiovascular: regular rate and rhythym, no murmur, rub, or gallop - ASA Status ASA Status: IV ANE Anesthesia Plan Anesthesia Plan: GA w LMA
[2017-11-21] MEDS ORDERED: ALBUTEROL 3 ML DEYVIAL IH PRN (12:38)
[2017-11-21] MEDS ORDERED: NALOXONE HCL 0.4 MG/ML INJ IVP PRN (12:38)
[2017-11-21] MEDS ORDERED: ONDANSETRON 4 MG/2 ML VIAL IVP PRN ×2 (12:38→14:16)
[2017-11-21] MEDS ORDERED: LR 500 ML IV PRN (12:38)
[2017-11-21] MEDS ORDERED: LIDOCAINE 2% 5 ML SDV ONE (12:50)
[2017-11-21] MEDS ORDERED: ePHEDrine SULFATE 25 MG/5 ML SYR ONE (12:50)
[2017-11-21] MEDS ORDERED: ONDANSETRON 4 MG/2 ML VIAL ONE (12:50)
[2017-11-21] MEDS ORDERED: ALBUMIN 5% 250 ML BOTTLE IV ONE (12:57)
[2017-11-21] MEDS ORDERED: THROMBIN (BOVINE) 20,000 UNIT VIAL TP ONE ×2 (13:00→13:37)
--- NOTE | 2017-11-21 14:14 | POSTOPPROG ---
Post Op Note Date of Operation: 11/21/17 Surgeon: Wilbert Cullen Harvest Worker Fruit: Brenda Anesthesiologist: Edinson Anesthesia: GET(General Endotracheal) Pre-op Diagnosis: Right breast CA Post-op Diagnosis: same Indication: same Procedure: Right breast lumpectomy, R axillary SN excision, R axillary dissection Findings: Positive Preston node Inf/Abcess present in the surg proc area at time of surgery?: No Depth: Deep Incisional (Fascial) EBL: 50-100 Drains: Reji Gatica Specimen(s): Right breast mass Right axillary sentinel LN Right axillary contents
[2017-11-21] MEDS ORDERED: ONDANSETRON DISINTEGRATING 4 MG TAB PO PRN (14:16)
--- NOTE | 2017-11-21 14:57 | POSTANESTH ---
Post Anesthetic Evaluation Cardiovascular Status: Normal, Stable, Similar to Pre-Op Cond Respiratory Status: Normal, Stable, Similar to Pre-op Cond. Level of Consciousness/Mental Status: Can Participate in Eval Pain Control: Adequate, Prn Tx Ordered Nausea/Vomiting Control: Adequate, Prn Tx Ordered Complications Possibly Related to Anesthesia: None Noted
[2017-11-21] MEDS: fentaNYL 100 MCG/2 ML INJ IVP PRN ×4 (14:58→15:09)
[2017-11-21] MEDS: oxyCODONE IR 5 MG TAB PO PRN ×2 (16:22→23:08)
[2017-11-21] MEDS: ACETAMINOPHEN 325 MG TAB PO SCH ×2 (17:33→23:08)
[2017-11-21] MEDS: HYDROmorphONE/DILAUDID 1 MG/ML INJ IVP PRN ×2 (17:34→18:36)
--- NOTE | 2017-11-21 20:08 | SOAPPROG ---
SOAP Progress Note Assessment/Plan: Assessment: 86-YEAR-OLD FEMALE STATUS POST LEFT NEEDLE LOCAL LUMPECTOMY AND AXILLARY NODE DISSECTION DOING GREAT/AFEBRILE/VITAL SIGNS STABLE/MINIMAL PAIN/MINIMAL JUAN JOSE DRAINAGE/WOUND OKAY Plan: HOME IN THE A.M./FOLLOW-UP EARLY NEXT WEEK IN THE OFFICE FOR DRAIN REMOVAL 11/21/17 20:07 Objective: Vital Signs Temp Pulse Resp BP Pulse Ox 36.4 C 74 16 140/58 H 97 11/21/17 19:33 11/21/17 19:33 11/21/17 19:33 11/21/17 19:33 11/21/17 19:33 11/20/17 11/21/17 11/22/17 05:59 05:59 05:59 Intake Total 360 Output Total 200 Balance 160 ICD10 Worksheet Patient Problems: Problems Problem Status Onset Atrial flutter Acute Chest pain Acute History of coronary artery disease Acute Pain in left shoulder Acute
[2017-11-22] MEDS: ACETAMINOPHEN 325 MG TAB PO SCH ×2 (05:06→10:53)
[2017-11-22] MEDS: oxyCODONE IR 5 MG TAB PO PRN ×2 (05:06→10:53)
--- NOTE | 2017-11-22 05:35 | GOP ---
[f rep st] OPERATIVE REPORT DATE OF OPERATION: 11/21/2017 SURGEON: Wilbert Cullen MD HOOKER MACHINE TENDER: Yasmine Gutierrez NP. ANESTHESIA: Dr. Neves. ANESTHESIOLOGIST: Dr. dario ellington. PREOPERATIVE DIAGNOSIS: Left breast cancer. POSTOPERATIVE DIAGNOSIS: Left breast cancer. PROCEDURE PERFORMED: Left breast needle localization lumpectomy and sentinel node biopsy with axilla ry node dissection. FINDINGS: The target was contained in the specimen. Large sentinel node was positive and at least 2 or 3 other nodes appeared to be positive in the axillary node dissection. ESTIMATED BLOOD LOSS: Less than 20 cc. DESCRIPTION OF PROCEDURE: The patient was taken to the operating room where she received satisfactor y general endotracheal anesthesia by Dr. Neves. She was placed in the supine position with the left arm outstretched on an arm board, prepped and draped in the usual sterile fashion. Using a gamma pro be, the area of the sentinel node was localized. A transverse incision was made in the axilla and di ssection extended down through the axillary fascia. Using the gamma probe, the sentinel node was kandis ntified. It was then dissected free with electrocautery and/or hemoclips and sent to Pathology. Hem ostasis was assured. The wound was infiltrated with 0.5% Marcaine and some topical thrombin. Attention was turned to the needle localization site. An elliptical skin incision was made around th e needle insertion. A full-thickness excisional biopsy was done around the needle tract down past th e tip of the needle. The specimen was removed. Hemostasis was thoroughly obtained with electrocaute ry. The specimen was appropriately marked and sent to Pathology. The wound was infiltrated with 0.5 % Marcaine and bathed in some topical thrombin. A 15 round silicone JUAN JOSE drain was brought out through a separate stab incision and secured to the skin with a 2-0 silk suture. The subcu was then closed with 3-0 Vicryl running suture after approximation of the breast tissue. Hemostasis was assured. Th e skin was closed with 4-0 Monocryl subcuticular stitch. In the interim, the frozen section of the s entinel node was returned as positive for cancer. The axillary incision was enlarged somewhat, disse ction extended down to the chest wall alongside the pectoralis muscle. The long thoracic and thoraco dorsal nerves were identified and spared from injury. Multiple venous branches were doubly ligated a nd divided. The axillary contents were then freed up from underneath the axillary vein and removed i n continuity and sent to Pathology. Hemostasis was thoroughly obtained with hemoclips and electrocau margarette. The wound was infiltrated with 0.5% Marcaine and sprayed with some topical thrombin and then c losed in layers using a 3-0 Vicryl for the fascia and subcutaneous tissue and 4-0 Monocryl subcuticul ar stitch for the skin. A 15 round silicone JUAN JOSE drain had been brought out through a separate stab in [facility] and that was secured to the skin with a 2-0 silk suture that was connected to suction drainage . She tolerated the procedure well. There were no complications. /[id number]/MODL
[2017-11-22] MEDS ORDERED: LEVOTHYROXINE 50 MCG TAB PO SCH (06:00)
[2017-11-22 07:58] VITALS: BP 148/66
[2017-11-22] MEDS ORDERED: Herbals/Supplements -Info Only PO SCH (09:00)
[2017-11-22] MEDS ORDERED: VALSARTAN 160 MG TAB PO SCH (09:00)
[2017-11-22] MEDS ORDERED: PROBENECID 500 MG TAB PO SCH (09:00)
[2017-11-22] MEDS ORDERED: DILTIAZEM CD 180 MG CAP PO SCH (09:00)
[2017-11-22] MEDS ORDERED: PANTOPRAZOLE SODIUM 40 MG TAB PO SCH (09:00)
[2017-11-22] MEDS ORDERED: FUROSEMIDE 40 MG TAB PO SCH (09:00)
--- NOTE | 2017-11-22 09:30 | SOAPPROG ---
SOAP Progress Note Assessment/Plan: Assessment: s/p L lumpectomy and l axilary dissection doing well check and record JUAN JOSE bid S: Feeling well, minimal pain O: Dressings cdi CTAB RRR Drains with serosanguinous fluid Plan: 11/22/17 09:29 Objective: Vital Signs Temp Pulse Resp BP Pulse Ox 36.6 C 75 16 148/66 H 95 11/22/17 07:55 11/22/17 07:55 11/22/17 07:55 11/22/17 08:54 11/22/17 07:55 11/21/17 11/22/17 11/23/17 05:59 05:59 05:59 Intake Total 360 Output Total 305 Balance 55 ICD10 Worksheet Patient Problems: Problems Problem Status Onset Atrial flutter Acute Chest pain Acute History of coronary artery disease Acute Pain in left shoulder Acute
--- NOTE | 2017-11-22 09:38 | ASMTCMCOM ---
CM Note CM Note Notes: Patient is s/p L needle local lumpectomy and axillary node dissection. She lives independently at [place]. Her daughters will accompany her home and spend the day with her. She is normally independent and feeling well. No discharge needs noted. Date Signed: 11/22/2017 09:38 AM Electronically Signed By:Nkechi Tafoya RN
[2017-11-22] MEDS ORDERED: BIMATOPROST 0.01% 2.5 ML OPHT.BTL EACHEYE SCH (21:00)
[2017-11-22] MEDS ORDERED: ATORVASTATIN CALCIUM 20 MG TAB PO SCH (21:00)
== END 2017-11-22 11:03 | disposition home or self-care (01) ==
LOC: FIMAGING 06:21 → F3E 14:14
PROVIDERS: ADMIT Surgery; ATTEND Surgery
DX: C50.912 Malignant neoplasm of unspecified site of left female breast (principal); C77.9 Secondary and unspecified malignant neoplasm of lymph node, unspecified; Z17.1 Estrogen receptor negative status [ER-]; I25.2 Old myocardial infarction; N18.3 Chronic kidney disease, stage 3 (moderate); J84.10 Pulmonary fibrosis, unspecified; I48.91 Unspecified atrial fibrillation; I25.10 Atherosclerotic heart disease of native coronary artery without angina pectoris; I50.32 Chronic diastolic (congestive) heart failure; J44.9 Chronic obstructive pulmonary disease, unspecified; E11.22 Type 2 diabetes mellitus with diabetic chronic kidney disease; E78.5 Hyperlipidemia, unspecified; I13.0 Hypertensive heart and chronic kidney disease with heart failure and stage 1 through stage 4 chronic kidney disease, or unspecified chronic kidney disease; E03.9 Hypothyroidism, unspecified; I27.29 Other secondary pulmonary hypertension; Z92.3 Personal history of irradiation; Z85.3 Personal history of malignant neoplasm of breast; Z82.49 Family history of ischemic heart disease and other diseases of the circulatory system; Z80.3 Family history of malignant neoplasm of breast; Z95.5 Presence of coronary angioplasty implant and graft
CPT/HCPCS: 19125; 19281; 38745; 76098; 78195; A9520; J0690; J1170; J2405; J2704; J3010; P9041; Q9968

== ENCOUNTER 2018-03-06 08:00 | Day surgery (SDC) | payer OTHER, MEDICARE ==
[2018-03-06] MEDS ORDERED: ceFAZolin 2 GM/DEXTROSE 100 ML IV ONE (08:13)
[2018-03-06] MEDS ORDERED: LR 1,000 ML IV ONE (08:14)
[2018-03-06] MEDS ORDERED: LIDOCAINE 1% 300 MG/30 ML SDV ONE (09:02)
[2018-03-06] MEDS ORDERED: BUPIVACAINE 0.5% 30 ML SDV ONE (09:02)
[2018-03-06] MEDS ORDERED: THROMBIN (BOVINE) 5,000 UNIT VIAL TP ONE (09:02)
[2018-03-06] MEDS ORDERED: NA BICARBONATE 50 MEQ/50 ML VIAL ONE (09:03)
[2018-03-06] MEDS ORDERED: HYDROGEN PEROXIDE 473 ML BOTTLE TP ONE (09:03)
--- NOTE | 2018-03-06 09:31 | PDANEPAE ---
ANE History of Present Illness here for lumpectomy ANE Past Medical History - Cardiovascular History Hx Hypertension: Yes Hx Arrhythmias: Yes Hx Chest Pain: Yes Hx Coronary Artery / Peripheral Vascular Disease: Yes Hx CHF / Valvular Disease: Yes Hx Palpitations: Yes Cardiovascular History Comment: afib. murmur. aortic stenosis. hx of mi. CAD with stent. hyperlipidemia. secondary pulmonary htn. 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 asthma. supervisor order takers is Dr. Mcelroy - Neurologic History Hx Cerebrovascular Accident: No Hx Seizures: No Hx Dementia: No Neurologic History Comment: diabetic peripheral neuropathy - Endocrine History Hx Diabetes: Yes Endocrine History Comment: DM 2. hypothyroidism - Renal History Hx Renal Disorders: Yes Renal History Comment: hx of kidney stones. renal insuff- lithographic proofer is Dr. [facility] at [facility] - Liver History Hx Hepatic Disorders: No - Neurological & Psychiatric Hx Hx Neurological and Psychiatric Disorders: No - Cancer History Hx Cancer: Yes Cancer History Comment: currently doing radiation last day 03/05/18, no chemo. breast cancer 1993 - Congenital Disorder History Hx Congenital Disorders: No - GI History Hx Gastrointestinal Disorders: No Gastrointestinal History Comment: stomach bleeding - Other Health History Other Health History: glaucoma. under left arm blister from radiation - Chronic Pain History Chronic Pain: No - Surgical History Prior Surgeries: 11/21/17 left breast lumpectomy with Cullen. right ureter surg to unblock from stone. knee surgery. right lumpectomy. hysterectomy ANE Review of Systems Review of systems is: negative Review of Systems: - Exercise capacity METS (RN): 3 METS ANE Patient History - Allergies Allergies/Adverse Reactions: allopurinol [Allopurinol] Allergy (Verified 03/02/18 11:30) Unknown clopidogrel bisulfate [From Plavix] Allergy (Verified 03/02/18 11:30) BLEEDING ethionamide [Ethionamide] Allergy (Verified 03/06/18 08:40) gabapentin [Gabapentin] Allergy (Verified 03/02/18 11:30) Unknown isoniazid Allergy (Verified 03/06/18 08:40) kiwi [Kiwi (Actinidia Chinensis)] Allergy (Verified 03/02/18 11:30) Anaphylaxis metronidazole [Metronidazole] Allergy (Verified 03/02/18 11:30) Unknown naproxen [Naproxen] Allergy (Verified 03/02/18 11:30) Rash neomycin [Neomycin] Allergy (Verified 03/06/18 08:40) niacin [Niacin] Allergy (Verified 03/02/18 11:30) Rash Nitroimidazoles [Nitroimidazole Derivatives] Allergy (Verified 03/06/18 08:40) risedronate sodium Allergy (Verified 03/06/18 08:40) vitamin B complex Allergy (Verified 03/06/18 08:40) CARDIOVASCULAR DRUGS Allergy (Uncoded 03/06/18 08:40) - Home Medications Home medications: home medication list seen and reviewed Home Medications: Aspirin [Aspirin 81mg (*)] 12/21/16 [Last Taken 03/04/18] Bimatoprost 0.01% [Lumigan 0.01% (*)] 12/21/16 [Last Taken 03/05/18] Furosemide [Lasix 40 MG (*)] 12/21/16 [Last Taken 02/23/18] Pantoprazole Sodium [Protonix 40mg (*)] 12/21/16 [Last Taken 03/06/18 07:00] Probenecid [Probenecid 500mg (*)] 12/21/16 [Last Taken 03/05/18] Simvastatin [Zocor] 12/21/16 [Last Taken 03/05/18] Diltiazem HCl [Cartia Xt] 11/21/17 [Last Taken 03/06/18 07:00] Herbals/Supplements -Info Only 11/21/17 [Last Taken 03/05/18] Levothyroxine [Synthroid 50 mcg (*)] 11/21/17 [Last Taken 03/05/18] Losartan Potassium 03/02/18 [Last Taken 03/05/18] valACYclovir 03/06/18 [Last Taken 03/05/18] - NPO status NPO Since - Liquids (Date): 03/05/18 NPO Since - Liquids (Time): 18:00 NPO Since - Solids (Date): 03/05/18 NPO Since - Solids (Time): 17:00 - Smoking Hx Smoking Status: Never smoked - Family Anes Hx Family Hx Anesthesia Complications: mother had a difficulty time waking up ANE Labs/Vital Signs - Vital Signs Blood Pressure: 199/80 Heart Rate: 69 Respiratory Rate: 18 O2 Sat (%): 100 Height: 152.4 cm Weight: 63.503 kg ANE Physical Exam - Airway Neck exam: FROM Mallampati Score: Class 1 Mouth exam: small mouth opening - Pulmonary Pulmonary: no respiratory distress - Cardiovascular Cardiovascular: regular rate and rhythym - ASA Status ASA Status: III ANE Anesthesia Plan Anesthesia Plan: GA w LMA
[2018-03-06] MEDS ORDERED: fentaNYL 100 MCG/2 ML INJ ONE (09:32)
[2018-03-06] MEDS ORDERED: PROPOFOL/EMULSION 500 MG/50 ML BOTTLE IV ONE (09:39)
[2018-03-06] MEDS ORDERED: oxyCODONE IR 5 MG TAB PO PRN (10:24)
[2018-03-06] MEDS ORDERED: NALOXONE HCL 0.4 MG/ML INJ IVP PRN (10:24)
[2018-03-06] MEDS ORDERED: ONDANSETRON 4 MG/2 ML VIAL IVP PRN (10:24)
[2018-03-06] MEDS ORDERED: ALBUTEROL 3 ML DEYVIAL IH PRN (10:24)
[2018-03-06] MEDS ORDERED: HYDROCODONE/APAP 5/325 TAB PO PRN (10:24)
[2018-03-06] MEDS ORDERED: DEXAMETHASONE 4 MG/ML VIAL IVP PRN (10:24)
[2018-03-06] MEDS ORDERED: fentaNYL 100 MCG/2 ML INJ IVP PRN (10:24)
[2018-03-06] MEDS ORDERED: HYDROmorphONE/DILAUDID 2 MG/ML INJ IVP PRN (10:24)
[2018-03-06] MEDS ORDERED: LABETALOL HCL 5 MG/ML 20 ML MDV IVP PRN (10:24)
--- NOTE | 2018-03-06 10:42 | POSTOPPROG ---
Post Op Note Date of Operation: 03/06/18 Surgeon: Wilbert Cullen Audit Intern: Brenda Anesthesiologist: Yossi Anesthesia: GET(General Endotracheal) Pre-op Diagnosis: Right breast mass Post-op Diagnosis: same Indication: same, calcified scar Procedure: Right breast mass excisional biopsy Findings: Calcified scar Inf/Abcess present in the surg proc area at time of surgery?: No Depth: Deep Incisional (Fascial) EBL: Minimal Drains: Reji Gatica Specimen(s): Right breast calcified mass
[2018-03-06 12:24] VITALS: BP 152/62
--- NOTE | 2018-03-06 18:46 | POSTANESTH ---
Post Anesthetic Evaluation Cardiovascular Status: Normal, Stable Respiratory Status: Normal, Stable Level of Consciousness/Mental Status: Can Participate in Eval Pain Control: Adequate, Prn Tx Ordered Nausea/Vomiting Control: Adequate, Prn Tx Ordered Complications Possibly Related to Anesthesia: None Noted
== END 2018-03-06 12:25 | disposition home or self-care (01) ==
LOC: FSGY 08:00
PROVIDERS: ATTEND Surgery
PROC: 0HBT0ZX Excision of Right Breast, Open Approach, Diagnostic (ICD-10-PCS; principal; 2018-03-06 09:30)
DX: N64.89 Other specified disorders of breast (principal); C50.412 Malignant neoplasm of upper-outer quadrant of left female breast; D50.9 Iron deficiency anemia, unspecified; D53.9 Nutritional anemia, unspecified; N18.3 Chronic kidney disease, stage 3 (moderate); E11.40 Type 2 diabetes mellitus with diabetic neuropathy, unspecified; E03.9 Hypothyroidism, unspecified; I25.10 Atherosclerotic heart disease of native coronary artery without angina pectoris; Z95.5 Presence of coronary angioplasty implant and graft; E78.5 Hyperlipidemia, unspecified
CPT/HCPCS: J0690; J2704; J3010

== ENCOUNTER 2018-04-05 20:11 | Emergency (ER) | payer OTHER, MEDICARE ==
[2018-04-05] MEDS ORDERED: diphenhydrAMINE 25 MG CAP PO ONE (21:40)
[2018-04-05] MEDS ORDERED: predniSONE 20 MG TAB PO ONE (21:41)
--- NOTE | 2018-04-05 21:44 | EDPHY ---
H & P Time Seen by Provider: 04/05/18 20:34 HPI/ROS: CHIEF COMPLAINT: Rash and itchy skin HISTORY OF PRESENT ILLNESS: This is a 87 year with a history of recurrent breast CA receiving radiation therapy, and a relatively recent diagnosis of shingles presents reporting that over the last 3 patient had waxing and waning, migraine rash which is quite itchy. Rash has been present on arms, back, and across her abdomen. She use some anti-itch cream with minimal improvement. She denies having any chest pain, shortness of breath, throat tightening, swelling about her lips, or difficulty breathing. No fevers or chills. No vomiting or diarrhea. Patient cannot identify any new medications other than the Valtrex which she has now finished. REVIEW OF SYSTEMS: A comprehensive 10 system review of systems was reviewed and is otherwise negative aside from elements mentioned in the history of present illness and medical decision making. PAST MEDICAL HISTORY: Includes myocardial infarction, status post stents, diabetes, glaucoma, breast cancer, GI bleeding, renal insufficiency. SOCIAL HISTORY: Lives at [place], here with her son. VITAL SIGNS: see nurse's notes. GENERAL: Pleasant, elderly female. Well-developed, well-nourished, intermittently scratching her arms and abdomen. HEENT: No eyelid swelling except for chronic lower eyelid puffiness patient states is due to her glaucoma. No swelling of the lips. Moist mucous membranes. Uvula is midline with no angioedema. Neck: supple, FROM. LUNGS: Clear to auscultation bilaterally, no wheezes, rhonchi or rales. CARDIAC: Regular rate and rhythm, systolic murmurs, no gallops.. ABDOMEN: Soft, nontender, nondistended, bowel sounds normal. BACK: No CVA tenderness. No vertebral tenderness. EXTREMITIES: No edema, FROM. NEURO: Alert and oriented, grossly nonfocal. SKIN: [Warm and dry. Faint vesicles which are nearly healed are present on the left upper shoulder, patient reports this is where her shingles was. Patient does have isolated urticarial rash on the left upper abdomen. This is quite itchy for her. This is same rash that she has noted in her popliteal fossa, arms, and across the anterior abdominal wall. Smoking Status: Never smoked Constitutional: Initial Vital Signs Temperature (C) 36.8 C 04/05/18 20:32 Heart Rate 82 04/05/18 20:32 Respiratory Rate 18 04/05/18 20:32 Blood Pressure 166/105 H 04/05/18 20:32 O2 Sat (%) 97 04/05/18 20:32 O2 Delivery Mode Nasal Cannula O2 (L/minute) 3 Allergies/Adverse Reactions: allopurinol [Allopurinol] Allergy (Verified 04/05/18 20:32) Unknown clopidogrel bisulfate [From Plavix] Allergy (Verified 04/05/18 20:32) BLEEDING ethionamide [Ethionamide] Allergy (Verified 04/05/18 20:32) gabapentin [Gabapentin] Allergy (Verified 04/05/18 20:32) Unknown isoniazid Allergy (Verified 04/05/18 20:32) kiwi [Kiwi (Actinidia Chinensis)] Allergy (Verified 04/05/18 20:32) Anaphylaxis metronidazole [Metronidazole] Allergy (Verified 04/05/18 20:32) Unknown naproxen [Naproxen] Allergy (Verified 04/05/18 20:32) Rash neomycin [Neomycin] Allergy (Verified 04/05/18 20:32) niacin [Niacin] Allergy (Verified 04/05/18 20:32) Rash Nitroimidazoles [Nitroimidazole Derivatives] Allergy (Verified 04/05/18 20:32) risedronate sodium Allergy (Verified 04/05/18 20:32) vitamin B complex Allergy (Verified 04/05/18 20:32) CARDIOVASCULAR DRUGS Allergy (Uncoded 04/05/18 20:32) Home Medications: Medication Instructions Recorded Aspirin [Aspirin 81mg (*)] 12/21/16 Bimatoprost 0.01% [Lumigan 0.01% 12/21/16 (*)] Furosemide [Lasix 40 MG (*)] 12/21/16 Pantoprazole Sodium [Protonix 40mg 12/21/16 (*)] Probenecid [Probenecid 500mg (*)] 12/21/16 Simvastatin [Zocor] 12/21/16 Diltiazem HCl [Cartia Xt] 11/21/17 Herbals/Supplements -Info Only 11/21/17 Levothyroxine [Synthroid 50 mcg 11/21/17 (*)] Losartan Potassium 03/02/18 valACYclovir 03/06/18 predniSONE [prednisone 10mg (RX)] 20 mg PO DAILY 3 Days tab 04/05/18 Medical Decision Making ED Course/Re-evaluation: 87-year-old female presenting with urticaria on her at min. She describes migratory rash the involving the arms and abdomen over the last several days with significant pruritus. Patient was given Benadryl by mouth as well as 20 mg of prednisone. She was discharged with instructions regarding Benadryl to use as needed or nonsedating antihistamines if preferred. She was discharged with a 3 days supply of prednisone. She will follow up with her primary care physician if this is not treating her symptoms. Differential Diagnosis: Differential diagnosis of the patient's rash was considered including but not limited to allergic reaction, urticaria, viral exanthem, erythema multiforme, Garrido-Reinier syndrome, petechial rash, scarlatiniform rash, HUS, cellulitis, or purpuric rash. - Data Points Medications Given: Discontinued Medications Diphenhydramine HCl (Benadryl) 25 mg PO EDNOW ONE Stop: 04/05/18 21:41 Last Admin: 04/05/18 21:52 Dose: 25 mg Prednisone (Prednisone) 20 mg PO EDNOW ONE Stop: 04/05/18 21:42 Last Admin: 04/05/18 21:52 Dose: 20 mg Departure - Departure Disposition: Home, Routine, Self-Care Clinical Impression: Urticaria Condition: Good Instructions: Urticaria (ED) Additional Instructions: The rash that I see looks to me to be hives or urticaria. Treatment will consist of antihistamines as well as prednisone. The most common antihistamine is diphenhydramine (Benadryl). Dose is 25-50 mg every 6-8 hours as needed for itching and rash. Diphenhydramine can be sedating. Another type of antihistamine is loratadine (Claritin). This is taken once a day. It is not sedating. Repeat doses of antihistamines may be needed as the hives will come and go over the next several days. You may notice that the hives are worse after exposure to heat, warm showers, or exertion. The 2nd medication is prednisone, which is a steroid. The dose is 20 mg a day x3 days. Please take this as instructed. You may also apply a thin layer of 1% hydrocortisone cream to areas which are particularly itchy. Return to emergency department or seek care urgently if you severe shortness of breath develops, swelling of the lips, eyelids, or sensation that the throat is closing. Please follow up with your primary care physician for re-examination within the next several days. Referrals: Terrance Peguero MD [Primary Care Provider] - As per Instructions Prescriptions: predniSONE [prednisone 10mg (RX)] 20 mg PO DAILY 3 Days tab
[2018-04-05 22:43] VITALS: BP 184/90
== END 2018-04-05 22:42 | disposition home or self-care (01) ==
LOC: CED 20:11
DX: L50.9 Urticaria, unspecified (principal)
CPT/HCPCS: 99283; J7512

== ENCOUNTER 2018-07-30 03:24 | Inpatient (IN) | payer OTHER, MEDICARE ==
[2018-07-30] MEDS ORDERED: NS 500 ML IV ONE (03:31)
--- NOTE | 2018-07-30 03:37 | EDPHY ---
H & P Time Seen by Provider: 07/30/18 03:33 HPI/ROS: HPI CHIEF COMPLAINT: Heart palpitations, hypertension, headache HISTORY OF PRESENT ILLNESS: Patient is a very pleasant 87-year-old female she has a history of pulmonary fibrosis on oxygen 3 L at baseline, additionally hypertension, diabetes, history of atrial flutter, and coronary artery disease, presents emergency room by EMS from her private residence at the [facility]. She arrives to the emergency room for hypertension. She reports that she got up around 2:00 a.m. In the morning to go use the bathroom. She notes earlier in the evening she had a global headache, not sudden onset, not the worst headache of her life, however she noticed when she got up to use the bathroom this morning her headache persisted. She also felt palpitations or her heart fluttering. She laid down and felt like the room was somewhat spinning. This is since resolved. This all concerned her so she called 911. EMS evaluated her and found her blood pressure to be 200/100. She arrived to the emergency room and she denies any chest pain or chest pressure. Does complain of a global headache 07/26. Her blood pressure is 220/ 70 at this time. Her neurological exam is unremarkable without any focal neuro deficit on exam. Patient reports to me that her blood pressures been running in the 150 systolic. Sometimes typically runs in the 120s. She states that her liver runs this high. Patient additionally reports to me over approximately a week ago she had some left-sided chest discomfort that went to her left shoulder. She does not have this at this time. Past Medical History: Significant past medical history pulmonary fibrosis on 3 L nasal cannula, coronary artery disease, hypertension, diabetes, history of a flutter Past Surgical History: Denies recent surgery. Social History: Denies drugs alcohol tobacco. Resides at the [facility]. Family History: Noncontributory ROS REVIEW OF SYSTEMS: 10 Systems were reviewed and negative with the exception of the elements mentioned in the history of present illness. Exam Constitutional elderly in a nontoxic pleasant, triage nursing summary reviewed , vital signs reviewed, awake/alert. Eyes normal conjunctivae and sclera, EOMI, PERRLA. HENT normal inspection, atraumatic, moist mucus membranes, no epistaxis, neck supple/ no meningismus, no raccoon eyes. Respiratory clear to auscultation bilaterally, normal breath sounds, no respiratory distress, no wheezing. Cardiovascular rate normal, regular rhythm, no murmur, no edema, distal pulses normal. Gastrointestinal soft, non-tender, no rebound, no guarding, normal bowel sounds, no distension, no pulsatile mass. Genitourinary no CVA tenderness. Musculoskeletal bilateral lower extremity edema 1+, no midline vertebral tenderness, full range of motion, no calf swelling, no tenderness of extremities , no meningismus, good pulses, neurovascularly intact. Skin pink, warm, & dry, no rash, skin atraumatic. Neurologic awake, alert and oriented x 3, AAOx3, moves all 4 extremities equally, motor intact, sensory intact, CN II-XII intact, normal cerebellar, normal vision, normal speech. Psychiatric normal mood/affect. Heme/Lymph/Immune no lymphadenopathy. Differential Diagnosis: Hypertensive urgency, presents emergency room intracranial bleed, cardiac arrhythmia, mi Medical Decision Making: Plan for this patient IV establishment with basic labs , EKG, troponin, chest x-ray, CT scan head without contrast, close monitoring of her blood pressure. She reports to me that her blood pressure usually runs in the 150s. Re-evaluation: EKG interpretation by me on record in [employer] system. Impression time of EKG 3:35 a.m., this is sinus rhythm rate of 70 Q-waves noted V1 V2 V3 no signs of acute ischemia and EKG is very similar to her previous EKG dated 12/20/2016. CT scan head without contrast negative for acute intracranial abnormality specifically no bleed. Faxed to me by direct radiology 4:04 a.m.. ED x-ray chest one view: Cardiomegaly present. Bilateral pleural effusions worse on the left than right. Patient's chest x-ray concerning for CHF. Given her hypertension, chest x-ray, age, plan for patient be admitted hospital for observation today further blood pressure management. I spoke with the hospitalist service Dr. Chua, agrees to admit. Patient agrees to admit. Source: Patient, EMS - Personal History Tetanus Vaccine Date: 2005 - Medical/Surgical History Hx Asthma: Yes Hx Chronic Respiratory Disease: No Hx Diabetes: Yes Hx Cardiac Disease: Yes Hx Renal Disease: No Hx Cirrhosis: No Hx Alcoholism: No Hx HIV/AIDS: No Hx Splenectomy or Spleen Trauma: No Other PMH: SD w/ stents in 2003, gi bleed w/ transfusions, nose bleeds, glaucoma , DM2, kidney stones, breast cancer& surg, knee surg, asthma, PNA,pulmonary fibrosis. - Social History Smoking Status: Never smoked Constitutional: Initial Vital Signs O2 Sat (%) 94 07/30/18 03:31 O2 Delivery Mode Nasal Cannula O2 (L/minute) 3 Allergies/Adverse Reactions: allopurinol [Allopurinol] Allergy (Verified 04/05/18 20:32) Unknown clopidogrel bisulfate [From Plavix] Allergy (Verified 04/05/18 20:32) BLEEDING ethionamide [Ethionamide] Allergy (Verified 04/05/18 20:32) gabapentin [Gabapentin] Allergy (Verified 04/05/18 20:32) Unknown isoniazid Allergy (Verified 04/05/18 20:32) kiwi [Kiwi (Actinidia Chinensis)] Allergy (Verified 04/05/18 20:32) Anaphylaxis metronidazole [Metronidazole] Allergy (Verified 04/05/18 20:32) Unknown naproxen [Naproxen] Allergy (Verified 04/05/18 20:32) Rash neomycin [Neomycin] Allergy (Verified 04/05/18 20:32) niacin [Niacin] Allergy (Verified 04/05/18 20:32) Rash Nitroimidazoles [Nitroimidazole Derivatives] Allergy (Verified 04/05/18 20:32) risedronate sodium Allergy (Verified 04/05/18 20:32) vitamin B complex Allergy (Verified 04/05/18 20:32) CARDIOVASCULAR DRUGS Allergy (Uncoded 04/05/18 20:32) Home Medications: Medication Instructions Recorded Aspirin [Aspirin 81mg (*)] 81 mg PO DAILY 12/21/16 Bimatoprost 0.01% [Lumigan 0.01% 1 drop EACHEYE HS 12/21/16 (*)] Furosemide [Lasix 40 MG (*)] 80 mg PO DAILY 12/21/16 Pantoprazole Sodium [Protonix 40mg 40 mg PO DAILY 12/21/16 (*)] Probenecid [Probenecid 500mg (*)] 500 mg PO BID 12/21/16 Simvastatin [Zocor] 40 mg PO DAILY 12/21/16 Diltiazem HCl [Cartia Xt] 180 mg PO BID 11/21/17 Herbals/Supplements -Info Only 1 each PO DAILY 11/21/17 Levothyroxine [Synthroid 50 mcg 50 mcg PO DAILY06 11/21/17 (*)] Medical Decision Making - Diagnostics Imaging Results: Imaging Impressions Chest X-Ray 07/30/18 03:31 Impression: 1. Pleuroparenchymal opacity in the left lower lobe which may represent pleural effusion and pneumonia. 2. Cardiomegaly. - Data Points Laboratory Results: Laboratory Results 07/30/18 03:25 07/30/18 03:25 Medications Given: Acetaminophen (Tylenol) 650 mg PO Q4HRS PRN PRN Reason: Pain, Mild/Fever, Can Take PO Stop: 01/26/19 05:24 Last Admin: 07/30/18 09:47 Dose: 650 mg Aspirin (Aspirin) 81 mg PO DAILY [facility] Stop: 01/26/19 09:59 Last Admin: 07/30/18 11:44 Dose: 81 mg Atorvastatin Calcium (Lipitor) 20 mg PO DAILY [facility] Stop: 01/26/19 10:29 Last Admin: 07/30/18 11:44 Dose: 20 mg Bimatoprost (Lumigan 0.01%) 1 drops EACHEYE HS [facility] Stop: 01/26/19 20:59 Last Admin: 07/30/18 21:23 Dose: 1 drop Diltiazem HCl (Cardizem Er Q24hr) 180 mg PO BID [facility] Stop: 01/26/19 09:59 Last Admin: 07/30/18 21:21 Dose: 180 mg Furosemide (Lasix Injection) 20 mg IVP BIDDIUR [facility] Stop: 01/26/19 14:59 Last Admin: 07/30/18 14:56 Dose: 20 mg Heparin Sodium (Porcine) (Heparin Sc Injection) 5,000 unit SC BID [facility] Stop: 01/26/19 08:59 Last Admin: 07/30/18 21:19 Dose: 5,000 unit Hydralazine HCl (Apresoline) 10 mg IVP Q6 PRN PRN Reason: SBP>180 Stop: 01/26/19 09:53 Last Admin: 07/30/18 16:18 Dose: 10 mg Pantoprazole Sodium (Protonix) 40 mg PO DAILY [facility] Stop: 01/26/19 09:59 Last Admin: 07/30/18 11:44 Dose: 40 mg Probenecid (Probenecid) 500 mg PO BID [facility] Stop: 01/26/19 09:59 Last Admin: 07/30/18 21:21 Dose: 500 mg Discontinued Medications Acetaminophen (Tylenol) 1,000 mg PO EDNOW ONE Stop: 07/30/18 04:23 Last Admin: 07/30/18 04:25 Dose: 1,000 mg Furosemide (Lasix Injection) 20 mg IVP EDNOW ONE Stop: 07/30/18 05:26 Last Admin: 07/30/18 05:43 Dose: 20 mg Hydralazine HCl (Apresoline) 10 mg IVP EDNOW ONE Stop: 07/30/18 03:58 Last Admin: 07/30/18 04:02 Dose: 10 mg Sodium Chloride (Ns) 500 mls @ 1,000 mls/hr IV EDNOW ONE PRN Reason: Protocol Stop: 07/30/18 04:00 Last Admin: 07/30/18 03:37 Dose: 500 mls Point of Care Test Results: Chemistry 07/30/18 03:32 POC Troponin I 0.04 ng/mL ng/mL (0.00-0.08) Departure - Departure Disposition: [facility] Inpatient Acute Clinical Impression: Cardiomegaly, Heart palpitations Hypertension Qualifiers: Hypertension type: essential hypertension Qualified Code(s): I10 - Essential ( primary) hypertension CHF (congestive heart failure) Qualifiers: Heart failure type: other Qualified Code(s): I50.9 - Heart failure, unspecified Condition: Fair
[2018-07-30 03:39] LABS: PLATELET COUNT 268 10^3/uL (150-400)
[2018-07-30 03:48] LABS: INR 1.05 (0.83-1.16); PROTIME(PATIENT) 13.3 SEC (12.0-15.0)
[2018-07-30] MEDS ORDERED: hydrALAZINE 20 MG/ML VIAL IVP ONE (03:57)
[2018-07-30] MEDS ORDERED: ACETAMINOPHEN 500 MG TAB PO ONE (04:22)
[2018-07-30] MEDS ORDERED: ONDANSETRON DISINTEGRATING 4 MG TAB PO PRN (05:25)
[2018-07-30] MEDS ORDERED: FUROSEMIDE 20 MG/2 ML VIAL IVP ONE (05:25)
[2018-07-30] MEDS ORDERED: ONDANSETRON 4 MG/2 ML VIAL IVP PRN (05:25)
--- NOTE | 2018-07-30 06:01 | PDGENHP ---
History and Physical - Chief Complaint Palpitations - History of Present Illness 87 yo F w/ hx of CAD, HTN, ILD, and CKD presents presents with palpitations. She tells me got up to the bathroom today and felt poorly. He could feel her heart "racing and skipping beats". She also had a mild headache so she called EMS. EMS noted her blood pressure to be elevated. Upon arrival to the ED her SBP was >200. The remainder of her work-up was unremarkable aside from elevated BNP and CXR with signs of fluid overload. She tells me her metallographer doubled her furosemide at some point recently due to fluid buildup, although she does not recall well. She also had some L chest pain last week but none tonight. She is being admitted for repeat echocardiogram, diuresis, and observation. Case discussed with ED physician Dr. Garcia; records reviewed and summarized above. History Information - Allergies/Home Medication List Allergies/Adverse Reactions: allopurinol [Allopurinol] Allergy (Verified 04/05/18 20:32) Unknown clopidogrel bisulfate [From Plavix] Allergy (Verified 04/05/18 20:32) BLEEDING ethionamide [Ethionamide] Allergy (Verified 04/05/18 20:32) gabapentin [Gabapentin] Allergy (Verified 04/05/18 20:32) Unknown isoniazid Allergy (Verified 04/05/18 20:32) kiwi [Kiwi (Actinidia Chinensis)] Allergy (Verified 04/05/18 20:32) Anaphylaxis metronidazole [Metronidazole] Allergy (Verified 04/05/18 20:32) Unknown naproxen [Naproxen] Allergy (Verified 04/05/18 20:32) Rash neomycin [Neomycin] Allergy (Verified 04/05/18 20:32) niacin [Niacin] Allergy (Verified 04/05/18 20:32) Rash Nitroimidazoles [Nitroimidazole Derivatives] Allergy (Verified 04/05/18 20:32) risedronate sodium Allergy (Verified 04/05/18 20:32) vitamin B complex Allergy (Verified 04/05/18 20:32) CARDIOVASCULAR DRUGS Allergy (Uncoded 04/05/18 20:32) Home Medications: Aspirin [Aspirin 81mg (*)] 12/21/16 [Last Taken 03/04/18] Bimatoprost 0.01% [Lumigan 0.01% (*)] 12/21/16 [Last Taken 03/05/18] Furosemide [Lasix 40 MG (*)] 12/21/16 [Last Taken 02/23/18] Pantoprazole Sodium [Protonix 40mg (*)] 12/21/16 [Last Taken 03/06/18 07:00] Probenecid [Probenecid 500mg (*)] 12/21/16 [Last Taken 03/05/18] Simvastatin [Zocor] 12/21/16 [Last Taken 03/05/18] Diltiazem HCl [Cartia Xt] 11/21/17 [Last Taken 03/06/18 07:00] Herbals/Supplements -Info Only 11/21/17 [Last Taken 03/05/18] Levothyroxine [Synthroid 50 mcg (*)] 11/21/17 [Last Taken 03/05/18] Losartan Potassium 03/02/18 [Last Taken 03/05/18] valACYclovir 03/06/18 [Last Taken 03/05/18] I have personally reviewed and updated: family history, medical history - Past Medical History coronary artery disease, diabetes type 2 Additional medical history: Pulmonary fibrosis - Surgical History Reports: coronary stent - Family History Positive for: CAD - Social History Smoking Status: Never smoked Review of Systems Review of Systems: ROS: 10pt was reviewed & negative except for what was stated in HPI & below Physical Exam Physical Exam: Temp Pulse Resp BP Pulse Ox 36.4 C 84 20 160/57 H 96 07/30/18 04:05 07/30/18 05:11 07/30/18 05:11 07/30/18 05:11 07/30/18 05:11 Constitutional: no apparent distress, not in pain Eyes: PERRL, EOMI Ears, Nose, Mouth, Throat: moist mucous membranes, no oral mucosal ulcers Cardiovascular: regular rate and rhythym, systolic murmur, edema Respiratory: no respiratory distress, clear to auscultation Gastrointestinal: normoactive bowel sounds, soft, non-tender abdomen Skin: warm, normal color Musculoskeletal: full muscle strength, no muscle tenderness Neurologic: AAOx3, CN II-XII Intact Psychiatric: interacting appropriately, not anxious Lab Data & Imaging Review 07/30/18 03:25 07/30/18 03:25 WBC 6.16 10^3/uL (3.80-9.50) 07/30/18 03:25 RBC 2.77 10^6/uL (4.18-5.33) L 07/30/18 03:25 Hgb 9.4 g/dL (12.6-16.3) L 07/30/18 03:25 Hct 30.0 % (38.0-47.0) L 07/30/18 03:25 MCV 108.3 fL (81.5-99.8) H 07/30/18 03:25 MCH 33.9 pg (27.9-34.1) 07/30/18 03:25 MCHC 31.3 g/dL (32.4-36.7) L 07/30/18 03:25 RDW 14.5 % (11.5-15.2) 07/30/18 03:25 Plt Count 268 10^3/uL (150-400) 07/30/18 03:25 MPV 9.0 fL (8.7-11.7) 07/30/18 03:25 Neut % (Auto) 63.0 % (39.3-74.2) 07/30/18 03:25 Lymph % (Auto) 22.6 % (15.0-45.0) 07/30/18 03:25 [place] % (Auto) 11.5 % (4.5-13.0) 07/30/18 03:25 Eos % (Auto) 2.3 % (0.6-7.6) 07/30/18 03:25 Baso % (Auto) 0.3 % (0.3-1.7) 07/30/18 03:25 Nucleat RBC Rel Count 0.0 % (0.0-0.2) 07/30/18 03:25 Absolute Neuts (auto) 3.88 10^3/uL (1.70-6.50) 07/30/18 03:25 Absolute Lymphs (auto) 1.39 10^3/uL (1.00-3.00) 07/30/18 03:25 Absolute Monos (auto) 0.71 10^3/uL (0.30-0.80) 07/30/18 03:25 Absolute Eos (auto) 0.14 10^3/uL (0.03-0.40) 07/30/18 03:25 Absolute Basos (auto) 0.02 10^3/uL (0.02-0.10) 07/30/18 03:25 Absolute Nucleated RBC 0.00 10^3/uL (0-0.01) 07/30/18 03:25 Immature Gran % 0.3 % (0.0-1.1) 07/30/18 03:25 Immature Gran # 0.02 10^3/uL (0.00-0.10) 07/30/18 03:25 PT 13.3 SEC (12.0-15.0) 07/30/18 03:25 INR 1.05 (0.83-1.16) 07/30/18 03:25 APTT 29.5 SEC (23.0-38.0) 07/30/18 03:25 Sodium 138 mEq/L (135-145) 07/30/18 03:25 Potassium 4.7 mEq/L (3.5-5.2) 07/30/18 03:25 Chloride 101 mEq/L (97-110) 07/30/18 03:25 Carbon Dioxide 29 mEq/l (22-31) 07/30/18 03:25 Anion Gap 8 mEq/L (6-14) 07/30/18 03:25 BUN 30 mg/dL (7-23) H 07/30/18 03:25 Creatinine 1.7 mg/dL (0.6-1.0) H 07/30/18 03:25 Estimated GFR 28 07/30/18 03:25 Glucose 105 mg/dL (70-100) H 07/30/18 03:25 Calcium 10.3 mg/dL (8.5-10.4) 07/30/18 03:25 Magnesium 2.2 mg/dL (1.6-2.3) 07/30/18 03:25 Total Bilirubin 0.3 mg/dL (0.1-1.4) 07/30/18 03:25 Conjugated Bilirubin 0.2 mg/dL (0.0-0.5) 07/30/18 03:25 Unconjugated Bilirubin 0.1 mg/dL (0.0-1.1) 07/30/18 03:25 AST 20 IU/L (14-46) 07/30/18 03:25 ALT 20 IU/L (9-52) 07/30/18 03:25 Alkaline Phosphatase 75 IU/L (38-126) 07/30/18 03:25 POC Troponin I 0.04 ng/mL (0.00-0.08) 07/30/18 03:32 NT-Pro-B Natriuret Pep 5200 pg/mL (0-450) H 07/30/18 03:25 Total Protein 7.2 g/dL (6.3-8.2) 07/30/18 03:25 Albumin 3.8 g/dL (3.5-5.0) 07/30/18 03:25 Visualized and Interpreted Chest x-ray results: Yes Chest X-Ray results: other (Vascular congestion) Assessment & Plan Assessment: 87 yo F w/ CAD, CKD, ILD, and HTN presents with palpitations, elevated BP, and signs of fluid overload. Plan: 1. Fluid overload - I suspect multifactorial from CKD and severely elevated BP. She also has a loud, systolic murmur on exam. Her last echo in 2016 was essentially normal. BNP 5200 on admission, much higher than previous values. - TTE ordered - Monitor on telemetry - Lasix 20 mg IV x1, monitor response and redose as needed - Cardiac diet, monitor I/Os, daily weights 2. Hypertensive urgency - SBP >200 on arrival. She takes diltiazem 180 XR daily and furosemide 80 mg daily as an outpatient. Fluid overload is likely contributing. - Now improved s/p hydralazine IVP - Continue home medications - Additional hydralazine PRN to maintain SBP<180 3. CAD - With hx of stent in the past. Last cardiac cath in 2016 demonstrated patent stent. Troponin negative and ECG without ischemia on admission. - Continue home meds pending reconciliation 4. ILD, CHRF - Stable on baseline 3 L/min O2. - Continue home O2 5. CKD - Creatinine 1.7, which is near baseline. - Renally dose medications, avoid nephrotoxic agents 6. DM - Diet controlled Diet - Cardiac Code - Full Ppx - SQH BID Dispo - Admit under observation status
--- NOTE | 2018-07-30 07:53 | CPEKG ---
Test Reason : OPEN Blood Pressure : / mmHG Vent. Rate : 070 BPM Atrial Rate : 070 BPM P-R Int : 175 ms QRS Dur : 099 ms QT Int : 439 ms P-R-T Axes : -11 090 071 degrees QTc Int : 474 ms Sinus rhythm Anterior infarct, old Confirmed by Hans Astorga ([id number]) on 07/30/2018 7:52:41 AM Also confirmed by Hans Astorga ([id number]) on 07/30/2018 7:52:51 AM Referred By: Hans Astorga Confirmed By:Hans Astorga
[2018-07-30] MEDS: ACETAMINOPHEN 325 MG TAB PO PRN (09:47)
[2018-07-30] MEDS: HEPARIN 5,000 UNIT/0.5 ML INJ SC SCH ×2 (09:48→21:19)
[2018-07-30] MEDS ORDERED: hydrALAZINE 20 MG/ML VIAL IVP PRN (09:54)
[2018-07-30] MEDS: DILTIAZEM CD 180 MG CAP PO SCH ×2 (11:43→21:21)
[2018-07-30] MEDS: ATORVASTATIN CALCIUM 20 MG TAB PO SCH (11:44)
[2018-07-30] MEDS: PROBENECID 500 MG TAB PO SCH ×2 (11:44→21:21)
[2018-07-30] MEDS: PANTOPRAZOLE SODIUM 40 MG TAB PO SCH (11:44)
[2018-07-30] MEDS: ASPIRIN 81 MG CHEWABLE TAB PO SCH (11:44)
--- NOTE | 2018-07-30 12:05 | ECHO ---
[email or web address] [address] [address] Main: [phone] Echocardiography Examination Transthoracic Name: DONIS MICHELLE MR#: [id number] Study Date: 07/30/2018 Study Time: 08:18 AM Date of : 1930 Age: 87 year(s) Height: 152.4 cm (60 in.) Weight: 61.24 kg (135 lb.) BSA: 1.58 m2 Gender: Female Examination: Echo Contrast: Image Quality: Adequate Rhythm: Heart Rate: BP: 170 mmHg/71 mmHg Indication: Question CHF Procedure Staff Referring Physician: Machine Burrer: Sarah Randall RDCS Reading Physician: Stuart Benitez MD Requesting Provider: Indication: Question CHF Measurements Chambers AV/MV Label Value Normal Value Label Value Normal Value IVSd, 2D 0.8 cm (0.6cm - 1.1cm) AV PGmean 14 mmHg LVDd, 2D 4.5 cm (3.9cm - 5.3cm) AV Vmax 2.64 m/s LVDs, 2D 2.1 cm (2.1cm - 4cm) FRIEDA D (continuity eq. 1.5 cm2 LVEF, 2D 85 % (54% - 74%) VTI) LVEF, BP 70 % (55% - 70%) MR (ERO) 0.17 cm2 LVEF, MOD2 64 % (55% - 70%) MR PISA Alias V. 36.6 cm/s LVEF, MOD4 73 % (55% - 70%) MR PISA Radius 0.6 cm LVOT PGmean 3 mmHg MR Reg. Fraction 4 % LVOT Vmean 0.8 m/s MR Reg. Volume 16 ml LVOTd 1.9 cm (1.8cm - 2cm) MR Vena Contracta 0.3 cm LVPWd, 2D 1.2 cm MR Vmax 5.67 m/s LA Area, A2C 19.3 cm2 (0cm2 - 20cm2) MR VTI 179 cm LA Volume, A2C 54 ml (22ml - 52ml) MV A Vmax 1.33 m/s LA Volume, A4C 72 ml (22ml - 52ml) MV Yoselin 3.1 cm LA Volume, BP 63 ml (22ml - 52ml) MV DT 303 ms LAD Index, 2D 2.41 cm/m2 MV E' lateral 0.05 m/s LADs, 2D 3.8 cm (2.7cm - 3.8cm) MV E' mean 0.05 m/s LAESV index, MOD4 45.6 ml/m2 MV E' septal 0.05 m/s Additional Vessels MV E Vmax 1.82 m/s Label Value Normal Value MV E/A 1.37 Patient: DONIS MICHELLE Study Date: 07/30/2018 Page 1 of 3 08:18 AM AoAsc 3.4 cm MV E/E' lateral 38.1 AoRoot, MM 2.7 cm (2.2cm - 3.7cm) MV E/E' mean 36.4 IVC 1.6 cm (1.2cm - 2.3cm) MV E/E' septal 33.3 (0.45 - 1.25) MV PGmax 16 mmHg MV PGmean 6 mmHg MV PHT 0.12 s MV PHT 119 ms MV VTI 59.7 cm MVA D (continuity eq.) 1.5 cm2 MVA PHT 1.8 cm2 TV/PV Label Value Normal Value RA Pressure 5 mmHg RVSP 39 mmHg TR Pmax 34 mmHg TR Vmax 2.93 m/s Conclusions Compared to a prior study dated 12/21/2016 the left atrium has increased in size and is mow moderately dilated. There is now evidence of mild moderate mitral stenosis and previously that was not noted. Consider AJAY to rule out severe MR as a cause of the transmitral gradient, if clinically indicated. Left Ventricle: Diastolic dysfunction is present.. Global hypercontractility of the left ventricle. There is mild concentric left ventricular hypertrophy. Left Atrium: The left atrium is moderately dilated. Right Atrium: The right atrium is mildly dilated. Mitral Valve: Mild to moderate mitral regurgitation. Mild to moderate mitral valve stenosis. There is mild mitral calcification. Aortic Valve: AV max PG is 28mmHG. AV mean PG is 14mmHG.. There is mild aortic stenosis. Aortic leaflets exhibit moderate calcification. The aortic valve is trileaflet. Tricuspid Valve: Right Ventricular systolic pressure is measured at 39 mmHg. Findings Left Ventricle: Diastolic dysfunction is present.. Global hypercontractility of the left ventricle. The ejection fraction, measured by Simpsons method, is 70 %. There is mild concentric left ventricular hypertrophy. Left Atrium: Patient: DONIS MICHELLE Study Date: 07/30/2018 Page 2 of 3 08:18 AM The left atrium is moderately dilated. Right Atrium: The right atrium is mildly dilated. Mitral Valve: Mild mitral annular calcification.. Mild to moderate mitral regurgitation. Mild to moderate mitral valve stenosis. There is mild mitral calcification. Aortic Valve: AV max PG is 28mmHG. AV mean PG is 14mmHG.. There is mild aortic stenosis. Aortic leaflets exhibit moderate calcification. The aortic valve is trileaflet. Tricuspid Valve: Trace/mild tricuspid regurgitation.. Right Ventricular systolic pressure is measured at 39 mmHg. Aorta: The aortic root size in M-mode measures 2.7 cm. The ascending aorta measures 3.4 cm. Aorta Measurements AoRoot, MM is 2.7 cm. Pericardium: A small pericardial effusion was identified. There is a left pleural effusion. Exam Details Procedure Ordered: Echo Procedure Status: Routine study Image Quality: Adequate Facility Location: Cardiac Echo 1 (No Signature Object) Patient: DONIS MICHELLE Study Date: 07/30/2018 Page 3 of 3 08:18 AM [id number]
[2018-07-30] MEDS: FUROSEMIDE 20 MG/2 ML VIAL IVP SCH (14:56)
--- NOTE | 2018-07-30 16:52 | PDCARPN ---
Cardiology Progress Note Chief Complaint: SOB and edema Assessment/Plan: Assessment: Vianey is a 87 y/o F with a history of HTN, PAF, CAD s/p prior stenting, ILD on continuous oxygen, and valvular heart disease who presents with CHF and progressive MV disease. Her echo shows preserved LV function with EF of 70% with mild LVH. She has mild to moderate MR and MS. Her LA is moderately dilated. The MR is likely being underestimated. A AJAY was recommended but given her CRI and ILD she is not a candidate for CV surgery. She also is not a candidate for MV clipping given the presence of MS. Plan for medical management of her HTN and CHF. Plan: 1. HTN- Just given Hydralazine IV. She is not a candidate for a ANNIE-I given her renal insufficiency. Will begin Imdur 30mg in the AM and hydralazine 25mg TID. 2. MR- med management. 3. CHF- diuresing. Close to baseline. 07/30/18 17:04 Subjective: She denies any CP and her edema is improving. She has chronic SOB. Objective: Vital Signs (8 Hrs) Temp Pulse Resp BP Pulse Ox 07/30/18 15:39 79 14 186/86 H 96 07/30/18 12:00 36.8 C 80 16 161/61 H 97 07/30/18 11:43 161/61 H Intake/Output (24 Hrs) 07/29/18 07/30/18 07/31/18 05:59 05:59 05:59 Intake Total 650 Output Total 300 900 Balance 350 -900 Intake: Oral (ml) 150 IV Infused (ml) 500 Output: Urine (ml) 300 900 Toilet 900 Other: Weight 61.235 kg Number of Voids 1 Toilet 1 Result Diagrams: 07/30/18 03:25 07/30/18 03:25 - Physical Exam Constitutional: no apparent distress Cardiovascular: regular rate and rhythm, systolic murmur Respiratory: inspiratory crackles, other (diffuse crackles consistent with ILD) Skin: other (trace edema bilaterally) ICD10 Worksheet Patient Problems: Problems Problem Status Onset CHF (congestive heart failure) Acute Cardiomegaly Acute Heart palpitations Acute Hypertension Acute Atrial flutter Acute Chest pain Acute History of coronary artery disease Acute Pain in left shoulder Acute
--- NOTE | 2018-07-30 19:05 | HOSPPROG ---
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 -AJAY considered, but eventually decided on med mgmt only -she is not a candidate for surgery or MV clip * CKD -at baseline creatinine 1.7 * HTN urgency -uptitrate meds per cards * CAD/stent -last cath 2015 * ILD with chronic respiratory failure 3L -at baseline Objective: Vital Signs Temp Pulse Resp BP Pulse Ox 36.8 C 79 14 186/86 H 96 07/30/18 12:00 07/30/18 15:39 07/30/18 15:39 07/30/18 15:39 07/30/18 15:39 07/29/18 07/30/18 07/31/18 05:59 05:59 05:59 Intake Total 650 Output Total 300 1200 Balance 350 -1200 PT 13.3 SEC (12.0-15.0) 07/30/18 03:25 INR 1.05 (0.83-1.16) 07/30/18 03:25 d/w sandra garcia - AJAY considered, but given advanced age decided on med mgmt ECHO - moderate MS - new Laboratory Tests 07/30/18 07/30/18 03:25 03:25 Hct 30.0 L MCV 108.3 H Creatinine 1.7 H NT-Pro-B Natriuret Pep 5200 H - Physical Exam Constitutional: no apparent distress, appears nourished, not in pain Cardiovascular: regular rate and rhythym, systolic murmur, No edema Respiratory: no respiratory distress, no rales or rhonchi, clear to auscultation Gastrointestinal: normoactive bowel sounds, soft, non-tender abdomen, no palpable masses Skin: no rashes or abrasions, no fluctuance, no induration Neurologic: AAOx3, sensation intact bilaterally Psychiatric: interacting appropriately, not anxious, not encephalopathic, thought process linear ICD10 Worksheet Patient Problems: Problems Problem Status Onset Chest pain Acute Pain in left shoulder Acute History of coronary artery disease Acute Atrial flutter Acute Hypertension Acute CHF (congestive heart failure) Acute Cardiomegaly Acute Heart palpitations Acute
[2018-07-30] MEDS: BIMATOPROST 0.01% 2.5 ML OPHT.BTL EACHEYE SCH (21:23)
[2018-07-31] MEDS: LEVOTHYROXINE 50 MCG TAB PO SCH (05:52)
[2018-07-31] MEDS: hydrALAZINE 25 MG TAB PO SCH ×4 (05:52→20:32)
[2018-07-31] MEDS: ACETAMINOPHEN 325 MG TAB PO PRN (10:54)
[2018-07-31] MEDS: FUROSEMIDE 20 MG/2 ML VIAL IVP SCH ×2 (10:54→15:59)
[2018-07-31] MEDS: PROBENECID 500 MG TAB PO SCH (10:55)
[2018-07-31] MEDS: ISOSORBIDE MONONITRATE 30 MG TAB.SR PO SCH (10:55)
[2018-07-31] MEDS: PANTOPRAZOLE SODIUM 40 MG TAB PO SCH (10:59)
[2018-07-31] MEDS: ATORVASTATIN CALCIUM 20 MG TAB PO SCH (11:00)
[2018-07-31] MEDS: DILTIAZEM CD 180 MG CAP PO SCH ×2 (11:00→20:32)
[2018-07-31] MEDS: ASPIRIN 81 MG CHEWABLE TAB PO SCH (11:01)
[2018-07-31] MEDS: HEPARIN 5,000 UNIT/0.5 ML INJ SC SCH ×2 (11:04→22:13)
--- NOTE | 2018-07-31 11:58 | PDCARPN ---
Cardiology Progress Note Chief Complaint: Edema Assessment/Plan: Assessment: Vianey is a 87 y/o F with a history of HTN, PAF, CAD s/p prior stenting, ILD on continuous oxygen, and valvular heart disease who presents with CHF and progressive MV disease. Her echo shows preserved LV function with EF of 70% with mild LVH. She has mild to moderate MR and MS. Her LA is moderately dilated. The MR is likely being underestimated. A AJAY was recommended but given her CRI and ILD she is not a candidate for CV surgery. She also is not a candidate for MV clipping given the presence of MS. Plan for medical management of her HTN and CHF. Plan: 1. HTN- Currently 146/80. Better controlled on Imdur 30mg in the AM and hydralazine 25mg TID. 2. MR- med management. She is not a CV surgery or mitral clip candidate. 3. CHF- diuresing. Close to baseline. Transition to PO tomorrow. 4. CP with history of CAD. Likely HTN induced. Will reassess once her HTN is better controlled. 07/31/18 11:53 Subjective: She denies any CP or SOB but is complaining of mild lower extremity edema. Objective: Vital Signs (8 Hrs) Temp Pulse Resp BP Pulse Ox 07/31/18 07:21 36.3 C 77 23 H 180/74 H 95 07/31/18 05:52 172/79 H Intake/Output (24 Hrs) 07/30/18 07/31/18 08/01/18 05:59 05:59 05:59 Intake Total 650 150 Output Total 300 1650 500 Balance 350 -1500 -500 Intake: Oral (ml) 150 150 IV Infused (ml) 500 Output: Urine (ml) 300 1650 500 Toilet 1650 500 Other: Weight 59.783 kg Number of Voids 1 Toilet 1 1 Number of Stools Toilet 1 Result Diagrams: 07/30/18 03:25 07/31/18 04:00 Telemetry: NSR - Physical Exam Constitutional: no apparent distress Cardiovascular: regular rate and rhythm, systolic murmur Respiratory: other (dry crackles) Skin: other (trace edema) Neurologic: AAOx3 ICD10 Worksheet Patient Problems: Problems Problem Status Onset CHF (congestive heart failure) Acute Cardiomegaly Acute Heart palpitations Acute Hypertension Acute Atrial flutter Acute Chest pain Acute History of coronary artery disease Acute Pain in left shoulder Acute
--- NOTE | 2018-07-31 16:29 | ASMTCMCOM ---
CM Note CM Note Notes: 07/31/2018 Case Management Note Pt admitted for CHF and palpitations. Discussed pt during rounds this morning. Met w/pt to discuss discharge needs. Pt has an appointment with Dr. Cullen on Friday to evaluate recovery from previous surgery for breast cancer. Pt oncologist is Alka Rocha. Pt pipe machine operator is Dr. Reyna. Pt has an appointment with Dr. Reyna on August 27. Pt is followed by Dr. Webb for nephrology. PT and OT recommend home care. Pt unhappy with home bound requirement. Pt son visiting from [place] on Friday and they have plans to venture to [facility] on Friday. Pt requested case management set up appointment at [facility] with PT Reji [phone]. Appointment set for 9 am on August 10 with PT Nereyda at [facility]. Pt lives in [facility]. Daughter coming to visit tomorrow is a Nurse Practitioner and will stay with pt until son arrives from [place]. Local son Glen present bedside. Pt previously open with [facility]. [facility] visited for advanced directives and then discontinued care. Provided information on Palliative. Pt considering starting with [facility]. Case Management d/c poc: home with family support and outpatient appointments Case Management to follow. Date Signed: 07/31/2018 04:28 PM Electronically Signed By:Ivania Nichole RN
--- NOTE | 2018-07-31 18:02 | HOSPPROG ---
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 Objective: Vital Signs Temp Pulse Resp BP Pulse Ox 36.3 C 70 14 144/55 H 96 07/31/18 14:56 07/31/18 16:44 07/31/18 14:56 07/31/18 16:44 07/31/18 14:56 07/30/18 07/31/18 08/01/18 05:59 05:59 05:59 Intake Total 1320 Balance 1320 PT 13.3 SEC (12.0-15.0) 07/30/18 03:25 INR 1.05 (0.83-1.16) 07/30/18 03:25 dw Isabella Abdi - 1 more night for BP control tele reviewed - NSR, even during "palpitations" with ambulation Laboratory Tests 07/31/18 04:00 Creatinine 1.7 H - Physical Exam Constitutional: no apparent distress, appears nourished, not in pain Cardiovascular: regular rate and rhythym, no murmur, rub, or gallop Respiratory: no respiratory distress, no rales or rhonchi, clear to auscultation Gastrointestinal: normoactive bowel sounds, soft, non-tender abdomen, no palpable masses Skin: no rashes or abrasions, no fluctuance, no induration Neurologic: AAOx3, sensation intact bilaterally Psychiatric: interacting appropriately, not anxious, not encephalopathic, thought process linear ICD10 Worksheet Patient Problems: Problems Problem Status Onset Chest pain Acute Pain in left shoulder Acute History of coronary artery disease Acute Atrial flutter Acute Hypertension Acute CHF (congestive heart failure) Acute Cardiomegaly Acute Heart palpitations Acute
[2018-07-31] MEDS: BIMATOPROST 0.01% 2.5 ML OPHT.BTL EACHEYE SCH (20:33)
[2018-08-01] MEDS: LEVOTHYROXINE 50 MCG TAB PO SCH (06:01)
[2018-08-01] MEDS: DILTIAZEM CD 180 MG CAP PO SCH (09:37)
[2018-08-01] MEDS: FUROSEMIDE 20 MG/2 ML VIAL IVP SCH (09:38)
[2018-08-01] MEDS: ISOSORBIDE MONONITRATE 30 MG TAB.SR PO SCH (09:38)
[2018-08-01] MEDS: ASPIRIN 81 MG CHEWABLE TAB PO SCH (09:38)
[2018-08-01] MEDS: ATORVASTATIN CALCIUM 20 MG TAB PO SCH (09:38)
[2018-08-01] MEDS: PANTOPRAZOLE SODIUM 40 MG TAB PO SCH (09:38)
[2018-08-01] MEDS: hydrALAZINE 25 MG TAB PO SCH (09:38)
[2018-08-01] MEDS: HEPARIN 5,000 UNIT/0.5 ML INJ SC SCH (09:38)
--- NOTE | 2018-08-01 10:21 | PDCARPN ---
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 Office will call with appointment.) Objective: Vital Signs (8 Hrs) Temp Pulse Resp BP Pulse Ox 08/01/18 07:17 36.7 C 87 20 170/62 H 90 L 08/01/18 03:58 36.8 C 70 18 157/59 H 96 Intake/Output (24 Hrs) 07/31/18 08/01/18 08/02/18 05:59 05:59 05:59 Intake Total 1900 Output Total 325 Balance 1575 Intake: Oral (ml) 1900 Output: Urine (ml) 325 Toilet 325 Other: Weight 60.1 kg Intake Quantity Yes Sufficient Result Diagrams: 07/30/18 03:25 08/01/18 03:55 ICD10 Worksheet Patient Problems: Problems Problem Status Onset CHF (congestive heart failure) Acute Cardiomegaly Acute Heart palpitations Acute Hypertension Acute Atrial flutter Acute Chest pain Acute History of coronary artery disease Acute Pain in left shoulder Acute
--- NOTE | 2018-08-01 10:29 | PDIAF ---
- Diagnosis Diagnosis: CHF, MS/MR Code Status: Full Code - Medication Management Discharge Medications: electronically signed and located in the Home Medication List. - Orders Services needed: Home Care, Registered Nurse, Physical Therapy, Occupational Therapy Home Care Face to Face: I certify that this patient was under my care and that I had the required [id number] encounter meeting the encounter requirements on the discharge day. My findings support the fact that the patient is homebound as defined in Home Care Face to Face Continued: CMS Chapter 7 Medicare Benefits Manual 30.1.1 , The condition of the patient is such that there exists a normal inability to leave home and consequently, leaving home would require a considerable and taxing effort. Diet Recommendation: no restrictions on diet Weigh Patient: daily Additional Instructions: If weight reduced too much, consider reduce Lasix back to 1 tablet daily - Follow Up Care Current Providers and Referrals: Terrance Peguero MD [Primary Care Provider] - As per Instructions Alka Rocha MD [Medical Doctor] - follow up as scheduled Wilbert Cullen MD [Medical Doctor] - follow up as scheduled Isabella Abdi PA [Physician Final Dressing Cutter] - 3-5 days (call on Friday for appointment) Jay Reyna MD [Medical Doctor] - follow up as scheduled Navin Castaneda MD [Medical Doctor] -
[2018-08-01 11:06] VITALS: BP 160/60
--- NOTE | 2018-08-01 11:33 | PDHOMEO2F ---
Home Oxygen Face to Face Home Orders: I certify that a physician or a nurse practitioner or physician's retail assistant store manager has had a [id number] encounter with this patient on the date of this order due to the diagnosis listed, which relates to the primary reason the patient requires home oxygen. Alternative treatments have been tried, or considered, and deemed ineffective. It is anticipated that supplemental oxygen will result in improvement with treatment. Home oxygen qualifying diagnosis: ILD SpO2 on room air (%): 85 Frequency of home oxygen needed: continuous Home oxygen liters per minute: 3L at rest, 5L with activity Home oxygen delivery device: nasal cannula Concentrator: Yes E-tanks for mobility and back up: Yes If ordering portable O2, is the patient mobile in the home?: Yes I certify that, based on these findings, the home oxygen is medically necessary for this patient for the following length of time. Length of time home oxygen needed: 99 years
--- NOTE | 2018-08-01 13:12 | ASDISCHSUM ---
Discharge Information Plan Status:Home with No Needs Medically Cleared to Leave:08/01/2018 Discharge Date:08/01/2018 CM D/C Disposition:Home, Routine, Self-Care ADT D/C Disposition:Home Health Service Projected Discharge Date:08/01/2018 Transportation at D/C:Family Discharge Delay Reason: Follow-Up Date:08/01/2018 Discharge Slot: Final Diagnosis: Placement Information Patient Contact Information Contact Name:DIANDRA Relationship:Haroon Address:[address] Work Phone: [facility]:[place] Alternate Phone: State/Zip Code:[place] [address] Email: Financial Information Financial Class:Medicare Primary Plan Desc:MEDICARE INPATIENT Primary Plan Number:[id number] Secondary Plan Desc:[employer]/MDR SUPPLEMENT Secondary Plan Number:[id number] Assessment Information LACE LACE Length of stay for Answers: 1 day current admission Acuity / Level of Answers: Yes Care: Did the patient have an inpatient admission? Comorbidities - select Answers: Coronary Artery Disease all that apply Diabetes (uncontrolled or controlled) Moderate or severe liver or renal disease Other Notes: HTN; AFlutter; Pulmonar y fibrosis # of Emergency department Answers: 1-2 visits in the last 6 months Score: 13 Date Signed: 08/01/2018 01:09 PM Electronically Signed By:Ivania Nichole RN [facility] CM Progress Note CM Note CM Note Notes: 07/31/2018 Case Management Note Pt admitted for CHF and palpitations. Discussed pt during rounds this morning. Met w/pt to discuss discharge needs. Pt has an appointment with Dr. Cullen on Friday to evaluate recovery from previous surgery for breast cancer. Pt oncologist is Alka Rocha. Pt lumber grader is Dr. Reyna. Pt has an appointment with Dr. Reyna on August 27. Pt is followed by Dr. Webb for nephrology. PT and OT recommend home care. Pt unhappy with home bound requirement. Pt son visiting from [place] on Friday and they have plans to venture to [facility] on Friday. Pt requested case management set up appointment at [facility] with PT Reji [phone]. Appointment set for 9 am on August 10 with PT Nereyda at [facility]. Pt lives in [facility]. Daughter coming to visit tomorrow is a Nurse Practitioner and will stay with pt until son arrives from [place]. Local son Glen present bedside. Pt previously open with [facility]. [facility] visited for advanced directives and then discontinued care. Provided information on Palliative. Pt considering starting with [facility]. Case Management d/c poc: home with family support and outpatient appointments Case Management to follow. Date Signed: 07/31/2018 04:28 PM Electronically Signed By:Ivania Nichole RN Case Management Discharge Plan Note Case Management Discharge Discharge Order Complete? Answers: Yes Patient to Obtain Answers: via Family Medications Transportation Arranged Answers: Family/Friends Family Notified Answers: Yes Notes: daughter in room Discharge Comments Notes: 08/01/2018 Case Management Note IM signed. Pt refuses homecare. Plans to attend PT with [facility]. Encouraged pt and daughter to call PCP with any questions or concerns. Daughter to transport home. Case Management d/c poc: [facility] with outpatient PT. Date Signed: 08/01/2018 01:11 PM Electronically Signed By:Ivania Nichole RN Intervention Information Intervention Type:*BRYANT-Signed Date of Service:07/30/2018 11:22 AM Patient Type:Observation Staff Member:Ro Bailey Hours: Discipline: Severity: Comment: Intervention Type:*IM-Signed Date of Service:08/01/2018 01:09 PM Patient Type:Inpatient Staff Member:GLADYS Nichole, Ivania Hours: Discipline: Severity: Comment:
--- NOTE | 2018-08-01 13:42 | PDMN ---
Medical Necessity Medical necessity: Change to IP, as of 07/31/18, per MD & MCG M-190; los >2 mn for ongoing management of acute on chronic diastolic CHF w/tachypnea & hypertension; requiring further monitoring & IV Lasix; comorbid advanced age, CKD, CAD, ILD
--- NOTE | 2018-08-01 17:53 | GDS ---
[f rep st] DISCHARGE SUMMARY DISCHARGE DIAGNOSES: 1. Acute on chronic diastolic congestive heart failure. 2. Moderate mitral stenosis with mitral regurgitation. 3. Chronic kidney disease. Baseline creatinine 1.7. 4. Hypertensive urgency. 5. Coronary artery disease, status post stent. 6. Interstitial lung disease with chronic respiratory failure, on 3 L. 7. Breast cancer. HISTORY: The patient is an 87-year-old female who presented with edema, shortness of breath, and pal pitations. She was felt to be in a diastolic congestive heart failure. Echocardiogram revealed new moderate mitral stenosis different than her previous echos. Cardiology was consulted. They initiall y considered a AJAY, however decided given her advanced age and chronic lung disease, to just proceed with medical management. We diuresed her with IV Lasix. Her blood pressures were very elevated, and she was started on hydralazine and Imdur for afterload reduction. She is not a candidate for CT sadie kristi or a mitral valve clip. She will follow up closely at [facility] for further management. I would like to gradually bring down her blood pressure even further as an outpatient. DISCHARGE MEDICATIONS: Please see computerized record for full detailed list. NEW MEDICATIONS: 1. Hydralazine 25 mg p.o. three times daily. 2. Imdur 30 mg p.o. daily. DISCONTINUED MEDICATIONS: Probenecid because this is not an effective medication with her baseline c reatinine of 1.7. ADDITIONAL DISCHARGE INSTRUCTIONS: 1. Close outpatient followup with Cardiology regarding CHF exacerbation. She is to weigh herself da ya. 2. Oxygen requirement is 3 L at rest 5 L with activity. 3. She will follow up with Dr. Cullen and Dr. Alka Rocha as scheduled this upcoming week to follow u p her breast cancer. 4. Follow up Dr. Jay Reyna in 1 month as scheduled. I recommended an additional short-term fo llowup in the next week with the Isabella Abdi, Physician Regional Construction Manager, at [facility] in the next 3-5 days . Greater than 30 minutes' time was spent arranging this discharge. Patient seen and examined by me on the day of discharge. /[id number]/MODL
== END 2018-08-01 14:20 | disposition home health service (06) | DRG 291 ==
LOC: EDUNIT# → F2W 06:10 → OBSVTOIN 07-31 12:52
PROVIDERS: ADMIT Student in an Organized Health Care Education/Training Program; ATTEND Internal Medicine
DX: I13.0 Hypertensive heart and chronic kidney disease with heart failure and stage 1 through stage 4 chronic kidney disease, or unspecified chronic kidney disease (principal); I50.33 Acute on chronic diastolic (congestive) heart failure; N18.9 Chronic kidney disease, unspecified; E11.22 Type 2 diabetes mellitus with diabetic chronic kidney disease; I16.0 Hypertensive urgency; J84.9 Interstitial pulmonary disease, unspecified; J96.10 Chronic respiratory failure, unspecified whether with hypoxia or hypercapnia; I48.92 Unspecified atrial flutter; I25.10 Atherosclerotic heart disease of native coronary artery without angina pectoris; I05.2 Rheumatic mitral stenosis with insufficiency; I25.2 Old myocardial infarction; Z99.81 Dependence on supplemental oxygen; Z95.5 Presence of coronary angioplasty implant and graft; Z85.3 Personal history of malignant neoplasm of breast; Z87.442 Personal history of urinary calculi; Z87.01 Personal history of pneumonia (recurrent)
CPT/HCPCS: 82607-90; 84484-ER; 96374; 97116-GP; 97161-GP; 97166-GO; 97530-GO; 97535-GO; G0378; J0360; J1644; J1940

== ENCOUNTER 2018-09-23 18:21 | Inpatient (IN) | payer OTHER, MEDICARE ==
[2018-09-23] MEDS ORDERED: ASPIRIN 81 MG CHEWABLE TAB PO ONE (18:42)
[2018-09-23 18:50] LABS: PLATELET COUNT 297 10^3/uL (150-400)
--- NOTE | 2018-09-23 18:53 | EDPHY ---
H & P Time Seen by Provider: 09/23/18 18:22 HPI/ROS: HPI Fatigue, epigastric discomfort. 87-year-old female by ambulance from [facility]. She reports that throughout today she has felt a sensation of increased fatigue. She also describes having epigastric, lower substernal discomfort. She does have a history of coronary artery disease with stents placed years ago. She states that she ate at around 12 noon today. She did not feel better after this. She has not had any associated nausea or vomiting. Denies any bloody or melenic stool. She is on oxygen 3 L 24-7 secondary to pulmonary hypertension. She reports that she has felt slightly more short of breath than usual. The patient was given 324 mg of chewed aspirin by EMS. ROS: Constitutional: No fever, no chills. As above. Eyes: No discharge. No changes in vision. ENT: No sore throat. No nasal congestion or rhinorrhea. Respiratory: No cough. No shortness of breath. Cardiac: As above, no palpitations. Gastrointestinal: As above, no vomiting, no diarrhea. Genitourinary: No hematuria. No dysuria or increased frequency with urination. Musculoskeletal: No back pain. No neck pain. No myalgias or arthralgias. Skin: No rashes. Neurological: No headache. No focal weakness or altered sensation. Past medical history: MD with stents placed in 2003. Ambulatory Services Representative is Dr. Jay Reyna. Gastrointestinal bleed requiring transfusion, nosebleeds, type 2 diabetes, kidney stones, breast cancer, knee surgery, asthma, pulmonary hypertension, fibrosis per Social history: She has a son who lives in the area. She is from assisted living at [address] Nonsmoker. No alcohol. Physical Exam: General Appearance: Alert, pleasant, she appears relaxed. She is not in any distress. This patient is responding to questions appropriately and in full sentences. This patient appears well-hydrated and well-nourished. Eyes: Pupils equal and round no pallor or injection. No lid edema, erythema or injection. Respiratory: There are no retractions, lungs are clear to auscultation anteriorly with good air movement bilaterally. Cardiovascular: Regular rate and rhythm. No murmur. Gastrointestinal: Abdomen is soft and nontender, no masses, bowel sounds normal. No focal tenderness at McBurney's point. No Bernard sign. Neurological: Motor sensory function is grossly intact. Cranial nerves are normal. Gait is normal. Skin: Warm and dry, no rashes. Musculoskeletal: Neck is supple and nontender. Extremities are symmetrical. All joints range without pain or impingement. Psychiatric: No agitation. No depression. Database: EKG: EKG time is 6:53 p.m.; EKG shows a narrow complex normal sinus rhythm with a ventricular rate of 75. QS waves noted in the anterior septal leads. The CO, QRS, QT intervals are within normal limits. There are no ST-T wave changes indicative of ischemic or injury pattern. No evidence of right heart strain. Interpreted by me. Imaging: AP portable chest x-ray: Large hiatal hernia. Present on previous studies. Otherwise, no acute cardiopulmonary disease process noted. Interpreted by me. Right upper quadrant ultrasound: Unremarkable study. Results were discussed with staff radiologist Dr. Gerald Sprague. Please see his report for further details. Procedures: Emergency department course: Triage vital signs reviewed. Blood pressure is 207/85. She is afebrile. Vital signs are otherwise unremarkable. IV was placed. She was placed on a equipment monitor phototypesetting. EKG was obtained and reviewed by myself. 8:15 p.m., the patient was re-evaluated, resting comfortably at this time. She has not had her evening antihypertensive medications. These include diltiazem and hydralazine. Blood pressure is currently 206/90. She is otherwise asymptomatic. She describes some mild epigastric, lower substernal discomfort. No shortness of breath. No abnormalities in her mentation. She will be given her usual 25 mg of oral hydralazine and 180 mg of oral diltiazem. Results of her emergency department workup were discussed with both her and her son who is currently at the bedside. Plan for admission discussed with the 2 of them. All of their questions were answered. Hospitalist paged. 8:20 p.m., spoke with on-call hospitalist Dr. Mi Enriquez. Case discussed in detail with her. She accepts this patient for admission. Cardiology paged. 8:40 p.m., spoke with chart computer Dr. Kelly. Case discussed in detail with him. He will see this patient on consultation. Patient was admitted in stable condition to telemetry observation. Differential Diagnosis: The differential diagnosis on this patient includes but is not limited to acute coronary syndrome, gastritis, biliary colic. This represents a partial list of diagnoses considered. These considerations are based on history, physical exam , past history, reassessment and diagnostic testing. Smoking Status: Never smoked Constitutional: Initial Vital Signs Temperature (C) 36.7 C 09/23/18 18:28 Heart Rate 80 09/23/18 18:28 Respiratory Rate 18 09/23/18 18:28 Blood Pressure 207/85 H 09/23/18 18:28 O2 Sat (%) 93 09/23/18 18:28 O2 Delivery Mode Nasal Cannula O2 (L/minute) 3 Allergies/Adverse Reactions: allopurinol [Allopurinol] Allergy (Verified 09/23/18 18:28) Unknown clopidogrel bisulfate [From Plavix] Allergy (Verified 09/23/18 18:28) BLEEDING ethionamide [Ethionamide] Allergy (Verified 09/23/18 18:28) gabapentin [Gabapentin] Allergy (Verified 09/23/18 18:28) Unknown isoniazid Allergy (Verified 09/23/18 18:28) kiwi [Kiwi (Actinidia Chinensis)] Allergy (Verified 09/23/18 18:28) Anaphylaxis metronidazole [Metronidazole] Allergy (Verified 09/23/18 18:28) Unknown naproxen [Naproxen] Allergy (Verified 09/23/18 18:28) Rash neomycin [Neomycin] Allergy (Verified 09/23/18 18:28) niacin [Niacin] Allergy (Verified 09/23/18 18:28) Rash Nitroimidazoles [Nitroimidazole Derivatives] Allergy (Verified 09/23/18 18:28) risedronate sodium Allergy (Verified 09/23/18 18:28) vitamin B complex Allergy (Verified 09/23/18 18:28) CARDIOVASCULAR DRUGS Allergy (Uncoded 04/05/18 20:32) Home Medications: Medication Instructions Recorded Aspirin [Aspirin 81mg (*)] 81 mg PO DAILY 12/21/16 Bimatoprost 0.01% [Lumigan 0.01% 1 drop EACHEYE HS 12/21/16 (*)] Furosemide [Lasix 40 MG (*)] 80 mg PO DAILY 12/21/16 Pantoprazole Sodium [Protonix 40mg 40 mg PO DAILY 12/21/16 (*)] Simvastatin [Zocor] 40 mg PO DAILY 12/21/16 Diltiazem HCl [Cartia Xt] 180 mg PO BID 11/21/17 Herbals/Supplements -Info Only 1 each PO DAILY 11/21/17 Levothyroxine [Synthroid 50 mcg 50 mcg PO DAILY06 11/21/17 (*)] Isosorbide Mononitrate [Imdur 30 30 mg PO DAILY #30 tab.sr 08/01/18 mg (*)] hydrALAZINE [Apresoline] 25 mg PO TID #90 tab 08/01/18 Aspirin 81mg (*) 09/23/18 Medical Decision Making - Diagnostics Imaging Results: Imaging Impressions Chest X-Ray 09/23/18 18:42 Impression: 1. Left basilar compressive atelectasis versus left basilar pneumonia. 2. Small bilateral pleural effusions. 3. Large hiatal hernia. 4. Cardiomegaly. No marilee failure. - Data Points Laboratory Results: Laboratory Results 09/23/18 18:25 09/23/18 18:25 09/23/18 09/23/18 09/23/18 19:36 18:25 18:25 WBC RBC Hgb Hct MCV MCH MCHC RDW Plt Count MPV Neut % (Auto) Lymph % (Auto) [place] % (Auto) Eos % (Auto) Baso % (Auto) Nucleat RBC Rel Count Absolute Neuts (auto) Absolute Lymphs (auto) Absolute Monos (auto) Absolute Eos (auto) Absolute Basos (auto) Absolute Nucleated RBC Immature Gran % Immature Gran # PT 12.5 SEC SEC (12.0-15.0) INR 0.97 (0.83-1.16) APTT 29.9 SEC SEC (23.0-38.0) Sodium 139 mEq/L mEq/L (135-145) Potassium 5.0 mEq/L mEq/L (3.5-5.2) Chloride 99 mEq/L mEq/L (97-110) Carbon Dioxide 31 mEq/l mEq/l (22-31) Anion Gap 9 mEq/L mEq/L (6-14) BUN 41 mg/dL H mg/dL (7-23) Creatinine 1.7 mg/dL H mg/dL (0.6-1.0) Estimated GFR 28 Glucose 115 mg/dL H mg/dL (70-100) Calcium 10.1 mg/dL mg/dL (8.5-10.4) Total Bilirubin < 0.1 mg/dL L mg/dL (0.1-1.4) Conjugated Bilirubin 0.0 mg/dL mg/dL (0.0-0.5) Unconjugated Bilirubin 0.1 mg/dL mg/dL (0.0-1.1) AST 28 IU/L IU/L (14-46) ALT 26 IU/L IU/L (9-52) Alkaline Phosphatase 69 IU/L IU/L (38-126) POC Troponin I 0.02 ng/mL ng/mL (0.00-0.08) NT-Pro-B Natriuret Pep 4100 pg/mL H pg/mL (0-450) Total Protein 7.3 g/dL g/dL (6.3-8.2) Albumin 4.4 g/dL g/dL (3.5-5.0) Lipase 215 IU/L IU/L (23-300) 09/23/18 18:25 WBC 6.60 10^3/uL 10^3/uL (3.80-9.50) RBC 3.61 10^6/uL L 10^6/uL (4.18-5.33) Hgb 11.3 g/dL L g/dL (12.6-16.3) Hct 37.9 % L % (38.0-47.0) MCV 105.0 fL H fL (81.5-99.8) MCH 31.3 pg pg (27.9-34.1) MCHC 29.8 g/dL L g/dL (32.4-36.7) RDW 14.6 % % (11.5-15.2) Plt Count 297 10^3/uL 10^3/uL (150-400) MPV 9.3 fL fL (8.7-11.7) Neut % (Auto) 57.5 % % (39.3-74.2) Lymph % (Auto) 27.9 % % (15.0-45.0) [place] % (Auto) 11.7 % % (4.5-13.0) Eos % (Auto) 2.1 % % (0.6-7.6) Baso % (Auto) 0.6 % % (0.3-1.7) Nucleat RBC Rel Count 0.0 % % (0.0-0.2) Absolute Neuts (auto) 3.80 10^3/uL 10^3/uL (1.70-6.50) Absolute Lymphs (auto) 1.84 10^3/uL 10^3/uL (1.00-3.00) Absolute Monos (auto) 0.77 10^3/uL 10^3/uL (0.30-0.80) Absolute Eos (auto) 0.14 10^3/uL 10^3/uL (0.03-0.40) Absolute Basos (auto) 0.04 10^3/uL 10^3/uL (0.02-0.10) Absolute Nucleated RBC 0.00 10^3/uL 10^3/uL (0-0.01) Immature Gran % 0.2 % % (0.0-1.1) Immature Gran # 0.01 10^3/uL 10^3/uL (0.00-0.10) PT INR APTT Sodium Potassium Chloride Carbon Dioxide Anion Gap BUN Creatinine Estimated GFR Glucose Calcium Total Bilirubin Conjugated Bilirubin Unconjugated Bilirubin AST ALT Alkaline Phosphatase POC Troponin I NT-Pro-B Natriuret Pep Total Protein Albumin Lipase Medications Given: Discontinued Medications Aspirin (Aspirin) 324 mg PO EDNOW ONE Stop: 09/23/18 18:43 Last Admin: 09/23/18 18:51 Dose: Not Given Point of Care Test Results: Chemistry 09/23/18 19:36 POC Troponin I 0.02 ng/mL ng/mL (0.00-0.08) Departure - Departure Disposition: [facility] Inpatient Acute Clinical Impression: Hypertension, Fatigue, Chest pain
[2018-09-23 18:58] LABS: INR 0.97 (0.83-1.16); PROTIME(PATIENT) 12.5 SEC (12.0-15.0)
[2018-09-23] MEDS ORDERED: DILTIAZEM 60 MG TAB PO ONE (20:27)
[2018-09-23] MEDS ORDERED: hydrALAZINE 25 MG TAB PO ONE (20:28)
[2018-09-23] MEDS ORDERED: DILTIAZEM CD 180 MG CAP PO ONE (20:45)
[2018-09-23] MEDS ORDERED: ACETAMINOPHEN 325 MG TAB PO PRN (20:56)
[2018-09-23] MEDS ORDERED: ONDANSETRON DISINTEGRATING 4 MG TAB PO PRN (20:56)
[2018-09-23] MEDS ORDERED: ONDANSETRON 4 MG/2 ML VIAL IVP PRN (20:56)
--- NOTE | 2018-09-23 21:07 | PDGENHP ---
History and Physical - Chief Complaint Fatigue, epigastric pain - History of Present Illness 87 y/o female w/hx of HTN, PAF, CRI, CAD s/p stenting in 2004, ILD on continuous 3L oxygen, and valvular heart disease presents via ambulance from [facility] w/c/o increasing fatigue and epigastric/low substernal pain. Denies fever, chills, CASTANEDA, vision changes, lightheadedness, nausea, vomiting. Endorses feeling a little more SOB than usual. Initial EKG and troponin are unremarkable, does have elevated SBP >200. She was admitted in July 2018 w/ symptoms of palpitations and SBP >200; treated for HTN, CHF and progressive MV disease. She was recently seen by [facility] on 09/15/18 to review current testing, symptoms and next steps in care -- it was determined if SOB and fatigue begin to impact her life, she would be a candidate for a pacer and AV nahid ablation per her off premise service representative, Dr. Reyna. She is being admitted for further work-up, monitoring and treatment. History Information - Allergies/Home Medication List Allergies/Adverse Reactions: allopurinol [Allopurinol] Allergy (Verified 09/23/18 18:28) Unknown clopidogrel bisulfate [From Plavix] Allergy (Verified 09/23/18 18:28) BLEEDING ethionamide [Ethionamide] Allergy (Verified 09/23/18 18:28) gabapentin [Gabapentin] Allergy (Verified 09/23/18 18:28) Unknown isoniazid Allergy (Verified 09/23/18 18:28) kiwi [Kiwi (Actinidia Chinensis)] Allergy (Verified 09/23/18 18:28) Anaphylaxis metronidazole [Metronidazole] Allergy (Verified 09/23/18 18:28) Unknown naproxen [Naproxen] Allergy (Verified 09/23/18 18:28) Rash neomycin [Neomycin] Allergy (Verified 09/23/18 18:28) niacin [Niacin] Allergy (Verified 09/23/18 18:28) Rash Nitroimidazoles [Nitroimidazole Derivatives] Allergy (Verified 09/23/18 18:28) risedronate sodium Allergy (Verified 09/23/18 18:28) vitamin B complex Allergy (Verified 09/23/18 18:28) CARDIOVASCULAR DRUGS Allergy (Uncoded 04/05/18 20:32) Home Medications: Bimatoprost 0.01% [Lumigan 0.01% (*)] 1 drop EACHEYE HS 12/21/16 [Last Taken 12/04] Furosemide [Lasix 40 MG (*)] 40 mg PO DAILY@0600 12/21/16 [Last Taken 09/23/18] Pantoprazole Sodium [Protonix 40mg (*)] 40 mg PO DAILY 12/21/16 [Last Taken 01/04] Simvastatin [Zocor] 40 mg PO DAILY 12/21/16 [Last Taken 07/29/18] Diltiazem HCl [Cartia Xt] 180 mg PO BID 11/21/17 [Last Taken 09/23/18 21:00] Herbals/Supplements -Info Only 1 each PO DAILY 11/21/17 [Last Taken 09/23/18] Levothyroxine [Synthroid 50 mcg (*)] 50 mcg PO DAILY06 11/21/17 [Last Taken 01/04] Aspirin EC [Aspirin EC 81 mg (*)] 81 mg PO DAILY 09/23/18 [Last Taken 09/22/18] Furosemide [Lasix 40 MG (*)] 40 mg PO DAILY@12 PRN 09/23/18 [Last Taken Unknown] Isosorbide Mononitrate [Imdur 30 mg (*)] 45 mg PO DAILY 09/23/18 [Last Taken 01/04] I have personally reviewed and updated: family history, medical history, social history, surgical history - Past Medical History coronary artery disease, diabetes type 2 Additional medical history: Pulmonary fibrosis, Paroxysmal atrial fibrillation, coronary artery disease, hyperlipidemia, hypertension, pulmonary hypertension, chronic renal insufficiency, mitral valve disease - Surgical History Reports: coronary stent (Placed in 2003) - Family History Positive for: CAD - Social History Smoking Status: Never smoked Alcohol Use: Rarely Drug Use: None Additional social history: Lives at [facility]. Plays [employer]. Review of Systems Review of Systems: ROS: 10pt was reviewed & negative except for what was stated in HPI & below Physical Exam Physical Exam: Lab data and imaging reviewed. White blood count: 6.60 Hemoglobin hematocrit: 11.3 and 37.9 Platelet count 297 Sodium: 139 Potassium: 5.0 Chloride: 99 Carbon dioxide: 31 BUN/Cr: 41/1.7 (baseline) INR: 0.97 BNP: 08/18/1999 Troponin: 0.02 Abdominal ultrasound limited: No cholelithiasis, biliary dilation, hydronephrosis, or free fluid. Atrophic right kidney. No hydronephrosis or free fluid. Chest x-ray: Left basilar compressive atelectasis versus pneumonia, small bilateral pleural effusions, large hiatal hernia, cardiomegaly with no marilee failure EKG: No evidence of right heart strain, normal sinus rhythm Temp Pulse Resp BP Pulse Ox 36.7 C 74 16 205/86 H 98 09/23/18 18:28 09/23/18 20:36 09/23/18 20:36 09/23/18 20:36 09/23/18 20:36 O2 (L/minute) 3 Constitutional: no apparent distress, appears nourished, not in pain Eyes: PERRL, anicteric sclera, EOMI Ears, Nose, Mouth, Throat: moist mucous membranes, ears appear normal, no oral mucosal ulcers, hard of hearing (Reports she needs to change batteries of her hearing aid) Cardiovascular: systolic murmur Peripheral Pulses: 2+: dorsalis-pedis (R), dorsalis-pedis (L) Respiratory: reduced air movement Gastrointestinal: normoactive bowel sounds, soft, non-tender abdomen, no palpable masses Genitourinary: no bladder fullness, no bladder tenderness Skin: warm, normal color, no rashes or abrasions, no fluctuance, no induration, No mottled Musculoskeletal: full muscle strength, no muscle tenderness, normal joint ROM, no joint effusions Neurologic: AAOx3, sensation intact bilaterally, CN II-XII Intact Psychiatric: interacting appropriately, not anxious, not encephalopathic, thought process linear Lymph, Heme, Immunologic: no cervical LAD, no supraclavicular LAD Lab Data & Imaging Review 09/23/18 18:25 09/23/18 18:25 WBC 6.60 10^3/uL (3.80-9.50) 09/23/18 18:25 RBC 3.61 10^6/uL (4.18-5.33) L 09/23/18 18:25 Hgb 11.3 g/dL (12.6-16.3) L 09/23/18 18:25 Hct 37.9 % (38.0-47.0) L 09/23/18 18:25 MCV 105.0 fL (81.5-99.8) H 09/23/18 18: MCH 31.3 pg (27.9-34.1) 09/23/18 18: MCHC 29.8 g/dL (32.4-36.7) L 09/23/18 18: RDW 14.6 % (11.5-15.2) 09/23/18 18: Plt Count 297 10^3/uL (150-400) 09/23/18 18:25 MPV 9.3 fL (8.7-11.7) 09/23/18 18:25 Neut % (Auto) 57.5 % (39.3-74.2) 09/23/18 18: Lymph % (Auto) 27.9 % (15.0-45.0) 09/23/18 18: [place] % (Auto) 11.7 % (4.5-13.0) 09/23/18 18: Eos % (Auto) 2.1 % (0.6-7.6) 09/23/18 18: Baso % (Auto) 0.6 % (0.3-1.7) 09/23/18 18: Nucleat RBC Rel Count 0.0 % (0.0-0.2) 09/23/18 18: Absolute Neuts (auto) 3.80 10^3/uL (1.70-6.50) 09/23/18 18: Absolute Lymphs (auto) 1.84 10^3/uL (1.00-3.00) 09/23/18 18: Absolute Monos (auto) 0.77 10^3/uL (0.30-0.80) 09/23/18 18: Absolute Eos (auto) 0.14 10^3/uL (0.03-0.40) 09/23/18 18: Absolute Basos (auto) 0.04 10^3/uL (0.02-0.10) 09/23/18: Absolute Nucleated RBC 0.00 10^3/uL (0-0.01) 09/23/18 18: Immature Gran % 0.2 % (0.0-1.1) 09/23/18 18:25 Immature Gran # 0.01 10^3/uL (0.00-0.10) 09/23/18 18:25 PT 12.5 SEC (12.0-15.0) 09/23/18 18:25 INR 0.97 (0.83-1.16) 09/23/18 18:25 APTT 29.9 SEC (23.0-38.0) 09/23/18 18:25 Sodium 139 mEq/L (135-145) 09/23/18 18:25 Potassium 5.0 mEq/L (3.5-5.2) 09/23/18 18:25 Chloride 99 mEq/L (97-110) 09/23/18 18:25 Carbon Dioxide 31 mEq/l (22-31) 09/23/18 18:25 Anion Gap 9 mEq/L (6-14) 09/23/18 18:25 BUN 41 mg/dL (7-23) H 09/23/18 18:25 Creatinine 1.7 mg/dL (0.6-1.0) H 09/23/18 18:25 Estimated GFR 28 09/23/18 18:25 Glucose 115 mg/dL (70-100) H 09/23/18 18:25 Calcium 10.1 mg/dL (8.5-10.4) 09/23/18 18:25 Total Bilirubin < 0.1 mg/dL (0.1-1.4) L 09/23/18 18:25 Conjugated Bilirubin 0.0 mg/dL (0.0-0.5) 09/23/18 18:25 Unconjugated Bilirubin 0.1 mg/dL (0.0-1.1) 09/23/18 18:25 AST 28 IU/L (14-46) 09/23/18 18:25 ALT 26 IU/L (9-52) 09/23/18 18:25 Alkaline Phosphatase 69 IU/L (38-126) 09/23/18 18:25 POC Troponin I 0.02 ng/mL (0.00-0.08) 09/23/18 19:36 NT-Pro-B Natriuret Pep 4100 pg/mL (0-450) H 09/23/18 18:25 Total Protein 7.3 g/dL (6.3-8.2) 09/23/18 18:25 Albumin 4.4 g/dL (3.5-5.0) 09/23/18 18:25 Lipase 215 IU/L (23-300) 09/23/18 18:25 Assessment & Plan Plan: 87-year-old female with history of coronary artery disease status post stent placement, CKD, ILD on chronic oxygen supplementation at 3 L nasal cannula, and hypertension presenting with increasing fatigue and epigastric pain. Vital signs are the following: Blood pressure 203/88, heart rate 74, respirations 20 , temperature 36.7 degrees, oxygen saturation on 3 L nasal cannula 96%. She received diltiazem and hydralazine home medications and her blood pressure is now to 197/ 80. #Fatigue, epigastric pain -Cards consulted and will evaluate pt in AM -Recent echo showed preserved LV function w/mild LVH and mild to mod MR and MS, LA mod dilated -Cycle trops x 2 Q6H -Cont tele/PCU monitoring -Does have a large hiatal hernia; suspected possible component for epigastric pain however Abdominal US and CXR are fairly unremarkable -Does have bilateral small pleural effusions, BNP 4100 however this is decreased from her prior admission which was in 5000+. She may be slightly fluid overloaded, cont home furosemide. #Hypertensive urgency -SBP >200 on arrival. She received her home medication of diltiazem and hydralazine in ED w/minor decrease in BP -Cont home medications -Will provide hydralazine IVP PRN for SBP >180; use cautiously while incorporating her home medications to avoid hypotensive event #CAD -Last cardiac cath in 2015 demonstrated patent stent -Cont home medications #CKD -Baseline creatinine 1.7 -Avoid nephrotoxic agents #DM -Diet-controlled #ILD -Stable on baseline 3L NC O2 Diet: Cardiac, NPO at midnight tonight VTE PPX: Heparin subcutaneous Code status: Full Dispo: Admit to observation
[2018-09-23] MEDS ORDERED: hydrALAZINE 20 MG/ML VIAL IVP PRN (21:40)
[2018-09-23] MEDS: hydrALAZINE 25 MG TAB PO SCH (23:50)
[2018-09-23] MEDS: HEPARIN 5,000 UNIT/0.5 ML INJ SC SCH (23:51)
[2018-09-24] MEDS: FUROSEMIDE 40 MG TAB PO SCH (06:03)
[2018-09-24] MEDS: LEVOTHYROXINE 50 MCG TAB PO SCH (06:04)
[2018-09-24] MEDS: HEPARIN 5,000 UNIT/0.5 ML INJ SC SCH ×3 (06:04→21:47)
[2018-09-24 08:19] LABS: PLATELET COUNT 248 10^3/uL (150-400)
[2018-09-24] MEDS: ISOSORBIDE MONONITRATE 30 MG TAB.SR PO SCH (09:08)
[2018-09-24] MEDS: DILTIAZEM CD 180 MG CAP PO SCH ×2 (09:08→21:47)
[2018-09-24] MEDS: ASPIRIN EC 81 MG TAB PO SCH (09:09)
[2018-09-24] MEDS: hydrALAZINE 25 MG TAB PO SCH ×3 (09:09→21:47)
[2018-09-24] MEDS: ATORVASTATIN CALCIUM 20 MG TAB PO SCH (09:09)
[2018-09-24] MEDS: PANTOPRAZOLE SODIUM 40 MG TAB PO SCH (09:09)
--- NOTE | 2018-09-24 10:38 | PDCARCONS ---
Cardiology Consult Reason for Consult: Acute onset of fatigue with epigastric pains Chief Complaint: heart fluttering with fatigue Requesting Physician: Hospitalist Team History of Present Illness: Patient is an 87 y/o female with past medical history of DM (with peripheral neuropathy), HTN, HLP, interstitial lung disease on chronic home oxygen at 3 liters/min, CRI, breast cancer, hypothyroidism, CAD with stents (noted to be patient on angiography from 2016), CHF (normal LVEF by echo in July 2018), atrial fibrillation (not on anticoagulation given anemia, with [id number] score of 7), anemia (chronic, and without clear cause), and mitral stenosis ( mild to moderate MS), who presented to [facility] with complaints of fatigue, "chest fluttering" and epigastric discomfort. When the patient was seen, she was without cardiovascular complaints. No chest pains or pressure, no PND or orthopnea. No irregularity to the heart was noted by the patient when she was seen by me this morning. In the [facility] ER, the patient voiced fatigue without nausea or emesis, fevers or chills. Outpatient office note from the end of August 2018 (LARRY Abdi) was reviewed prior to the patient being seen. No cardiac biomarker elevation was noted (troponin), but mild elevation to BNP was appreciated. CXR with cardiomegaly, but no acute findings consistent with CHF. Ultrasound of the abdomen without pathology appreciated. Remainder of the 12 point review of systems was unremarkable History Information - Allergies/Home Medication List Allergies/Adverse Reactions: allopurinol [Allopurinol] Allergy (Verified 09/23/18 18:28) Unknown clopidogrel bisulfate [From Plavix] Allergy (Verified 09/23/18 18:28) BLEEDING ethionamide [Ethionamide] Allergy (Verified 09/23/18 18:28) gabapentin [Gabapentin] Allergy (Verified 09/23/18 18:28) Unknown isoniazid Allergy (Verified 09/23/18 18:28) kiwi [Kiwi (Actinidia Chinensis)] Allergy (Verified 09/23/18 18:28) Anaphylaxis metronidazole [Metronidazole] Allergy (Verified 09/23/18 18:28) Unknown naproxen [Naproxen] Allergy (Verified 09/23/18 18:28) Rash neomycin [Neomycin] Allergy (Verified 09/23/18 18:28) niacin [Niacin] Allergy (Verified 09/23/18 18:28) Rash Nitroimidazoles [Nitroimidazole Derivatives] Allergy (Verified 09/23/18 18:28) risedronate sodium Allergy (Verified 09/23/18 18:28) vitamin B complex Allergy (Verified 09/23/18 18:28) CARDIOVASCULAR DRUGS Allergy (Uncoded 04/05/18 20:32) Home Medications: Bimatoprost 0.01% [Lumigan 0.01% (*)] 1 drop EACHEYE HS 12/21/16 [Last Taken 12/04] Furosemide [Lasix 40 MG (*)] 40 mg PO DAILY@0600 12/21/16 [Last Taken 09/23/18] Pantoprazole Sodium [Protonix 40mg (*)] 40 mg PO DAILY 12/21/16 [Last Taken 01/04] Simvastatin [Zocor] 40 mg PO DAILY 12/21/16 [Last Taken 07/29/18] Diltiazem HCl [Cartia Xt] 180 mg PO BID 11/21/17 [Last Taken 09/23/18 21:00] Herbals/Supplements -Info Only 1 each PO DAILY 11/21/17 [Last Taken 09/23/18] Levothyroxine [Synthroid 50 mcg (*)] 50 mcg PO DAILY06 11/21/17 [Last Taken 01/04] Aspirin EC [Aspirin EC 81 mg (*)] 81 mg PO DAILY 09/23/18 [Last Taken 09/22/18] Furosemide [Lasix 40 MG (*)] 40 mg PO DAILY@12 PRN 09/23/18 [Last Taken Unknown] Isosorbide Mononitrate [Imdur 30 mg (*)] 45 mg PO DAILY 09/23/18 [Last Taken 01/04] I have personally reviewed and updated: family history, medical history, social history, surgical history Past Medical History: - Past Medical History atrial fibrillation, coronary artery disease, cancer, CHF, COPD (ILD on supplemental oxygen), diabetes type 2, hypertension, hyperlipidemia - Surgical History Reports: coronary stent - Family History Positive for: non-pertinent - Social History Smoking Status: Never smoked Alcohol Use: Rarely Drug Use: None Cardiac History - Cardiac History Past Cardiac History: CAD, PCI Cardiac Risk Factors: hypertension (>140/90), lipidemia, diabetes mellitus, age > 65 Timing/Duration: Hours Severity: mild Severity Scale: 3 Location: substernal, epigastric Activities at Onset: none Modifying Factors: improves with: oxygen, rest Associated Symptoms: shortness of breath, weakness DAVID Risk Evaluation age greater or equal to 65: yes greater or equal to 3 CAD risk factors: yes known CAD(stenosis greater or eqaul to 50%): yes ASA use in past 7 days: yes severe angina(greater or equal to 2 episodes in 24hrs): no EKG ST changes greater or equal to 0.5mm: no positive cardiac marker: no Total Score: 4 DAVID Score: 19.9% risk Age in Years: 75 or older Sex: Female Congestive Heart Failure History: Yes Hypertension History: Yes Stroke/TIA/Thromboembolism History: No Vascular Disease History: Yes Diabetes Mellitus: Yes [id number] Score: 7 Physical Exam Physical Exam: Temp Pulse Resp BP Pulse Ox 36.6 C 80 18 176/71 H 96 09/24/18 08:00 09/24/18 08:00 09/24/18 08:00 09/24/18 08:00 09/24/18 08:00 O2 (L/minute) 2 Constitutional: no apparent distress, appears nourished, not in pain Eyes: PERRL, EOMI Ears, Nose, Mouth, Throat: moist mucous membranes, hearing normal, ears appear normal Cardiovascular: regular rate and rhythym, systolic murmur (III/ NOVA), pulses symmetric bilaterally, No JVD, No edema Peripheral Pulses: 2+: dorsalis-pedis (R), dorsalis-pedis (L) Respiratory: no respiratory distress, no rales or rhonchi, clear to auscultation Gastrointestinal: normoactive bowel sounds Skin: warm Musculoskeletal: full muscle strength, no muscle tenderness Neurologic: AAOx3, sensation intact bilaterally, CN II-XII Intact Psychiatric: interacting appropriately, not anxious, not encephalopathic Lab and Imaging 09/24/18 07:58 09/24/18 07:58 WBC 6.26 10^3/uL (3.80-9.50) 09/24/18 07:58 RBC 3.34 10^6/uL (4.18-5.33) L 09/24/18 07:58 Hgb 10.8 g/dL (12.6-16.3) L 09/24/18 07:58 Hct 35.4 % (38.0-47.0) L 09/24/18 07:58 MCV 106.0 fL (81.5-99.8) H 09/24/18 07:58 MCH 32.3 pg (27.9-34.1) 09/24/18 07:58 MCHC 30.5 g/dL (32.4-36.7) L 09/24/18 07:58 RDW 14.6 % (11.5-15.2) 09/24/18 07:58 Plt Count 248 10^3/uL (150-400) 09/24/18 07:58 MPV 9.3 fL (8.7-11.7) 09/24/18 07:58 Neut % (Auto) 82.6 % (39.3-74.2) H 09/24/18 07:58 Lymph % (Auto) 6.4 % (15.0-45.0) L 09/24/18 07:58 [place] % (Auto) 8.3 % (4.5-13.0) 09/24/18 07:58 Eos % (Auto) 2.2 % (0.6-7.6) 09/24/18 07:58 Baso % (Auto) 0.2 % (0.3-1.7) L 09/24/18 07:58 Nucleat RBC Rel Count 0.0 % (0.0-0.2) 09/24/18 07:58 Absolute Neuts (auto) 5.17 10^3/uL (1.70-6.50) 09/24/18 07:58 Absolute Lymphs (auto) 0.40 10^3/uL (1.00-3.00) L 09/24/18 07:58 Absolute Monos (auto) 0.52 10^3/uL (0.30-0.80) 09/24/18 07:58 Absolute Eos (auto) 0.14 10^3/uL (0.03-0.40) 09/24/18 07:58 Absolute Basos (auto) 0.01 10^3/uL (0.02-0.10) L 09/24/18 07:58 Absolute Nucleated RBC 0.00 10^3/uL (0-0.01) 09/24/18 07:58 Immature Gran % 0.3 % (0.0-1.1) 09/24/18 07:58 Immature Gran # 0.02 10^3/uL (0.00-0.10) 09/24/18 07:58 RBC/WBC/PLT Morphology TNP 09/24/18 07:58 Platelet Estimate TNP 09/24/18 07:58 PT 12.5 SEC (12.0-15.0) 09/23/18 18:25 INR 0.97 (0.83-1.16) 09/23/18 18:25 APTT 29.9 SEC (23.0-38.0) 09/23/18 18:25 Sodium 139 mEq/L (135-145) 09/24/18 07:58 Potassium 4.8 mEq/L (3.5-5.2) 09/24/18 07:58 Chloride 102 mEq/L (97-110) 09/24/18 07:58 Carbon Dioxide 31 mEq/l (22-31) 09/24/18 07:58 Anion Gap 6 mEq/L (6-14) 09/24/18 07:58 BUN 37 mg/dL (7-23) H 09/24/18 07:58 Creatinine 1.5 mg/dL (0.6-1.0) H 09/24/18 07:58 Estimated GFR 33 09/24/18 07:58 Glucose 90 mg/dL (70-100) 09/24/18 07:58 Calcium 9.2 mg/dL (8.5-10.4) 09/24/18 07:58 Total Bilirubin < 0.1 mg/dL (0.1-1.4) L 09/23/18 18:25 Conjugated Bilirubin 0.0 mg/dL (0.0-0.5) 09/23/18 18:25 Unconjugated Bilirubin 0.1 mg/dL (0.0-1.1) 09/23/18 18:25 AST 28 IU/L (14-46) 09/23/18 18:25 ALT 26 IU/L (9-52) 09/23/18 18:25 Alkaline Phosphatase 69 IU/L (38-126) 09/23/18 18:25 POC Troponin I 0.02 ng/mL (0.00-0.08) 09/23/18 19:36 Troponin I 0.013 ng/mL (0.000-0.034) 09/24/18 07:58 NT-Pro-B Natriuret Pep 4100 pg/mL (0-450) H 09/23/18 18:25 Total Protein 7.3 g/dL (6.3-8.2) 09/23/18 18:25 Albumin 4.4 g/dL (3.5-5.0) 09/23/18 18:25 Lipase 215 IU/L (23-300) 09/23/18 18:25 Visualized and Interpreted Chest x-ray results: Yes Chest X-ray Interpretation: no infiltrate, other (mild cardiomegaly) Visualized and Interpreted EKG results: Yes EKG Interpretation: Positive for: normal sinsus rhythm Telemetry: sinus rhythm Echocardiogram: pending as this note is being generated A/P Assessment: Patient is an 87 y/o female with extensive past medical history - CAD/PCI, CHF, MS (mod to severe), pAF, DM, ILD with supplemental oxygen need, and cancer - with episode of "fluttering" and associated symptoms. In the hospital today, the patient is doing well, and back to baseline. Given the pAF history, with mod to severe MS, one would have concerns about revisitation of this arrhythmia. At present, it is not noted (and the patient is without symptoms). No anticoagulation given idiopathic anemia, but CVA risk is quite elevated. Recent echo (july) with increase in LA dilation as well as progressive MS. Angiography from 2016 with patent stents and normal LVEF. Telemetry from 2017 with atrial fib and flutter both noted. Patient has been told that she is not a good surgical candidate, likely given age and comorbidities. Plan: (1) Recommendations for repeat echo (aware of recent echo in July) to reassess chamber dimensions, systolic function, and valve (primarily mitral) pathology (2) Would monitor telemetry to determine if more frequent bouts of atrial fibrillation are being noted (3) Continue therapy on ASA given CAD/PCI history (4) Statins for HLP should continue (5) Hydralazine for HTN management assistance should also continue (6) Synthroid for hypothyroidism (7) Will speak with Dr. Julia Reyna about his patient. She has been very clear on her wishes, but she is very well know to Axel, and would like to have him made aware of her inhouse stay
--- NOTE | 2018-09-24 11:13 | ASMTCMCOM ---
CM Note CM Note Notes: Patient admitted for "heart fluttering and fatigue." She has a hx of CAD, Afib, DM, anemia, and valvular heart disease among other things. She is normally independent and resides at [facility]. Her son Glen is local. She sees Dr Reyna as an outpatient. I doubt she will have any d/c needs, but we are available if this changes. Date Signed: 09/24/2018 11:12 AM Electronically Signed By:Nkechi Tafoya RN
--- NOTE | 2018-09-24 15:19 | HOSPPROG ---
Hospitalist Progress Note Assessment/Plan: HTN urgency - BPs better today, no change in meds due to concern for hypotension Fatigue / palpitations - query recurrent A fib, currently in NSR -cont to monitor on telemetry -check echo Abdominal pain / diarrhea - GI PCR neg, no more diarrhea, pain improved. U/S reviewed, nothing acute. Mitral stenosis - cards following -repeat echo today -cont to monitor on telemetry CAD/stent 2003 - doubt ischemia, trops neg -cont ASA, statin Chronic dHF - appears euvolemic -cont home lasix Paroxysmal A fib - NSR here, it's possible her symptoms were related to A fib, not on AC due to anemia -cont telemetry monitoring -cont dilt for rate control ILD - on 3L baseline, no e/o acute flare CKD - Cr at baseline, 1.7 DVT PPLX - Lovenox Full code Dispo - change to inpt for further cardiac evaluation Subjective: Pt reports copious diarrhea last night, better today. No more palpitations. No CP or SOB. She feels fatigued. Objective: Vital Signs Temp Pulse Resp BP Pulse Ox 36.8 C 73 18 164/74 H 97 09/24/18 11:03 09/24/18 11:03 09/24/18 11:03 09/24/18 11:03 09/24/18 11:03 Microbiology 09/23/18 23:06 Gastrointestinal Tract Panel (PCR) - Final Stool No Organism Detected By Pcr Laboratory Results 09/24/18 07:58 09/24/18 07:58 09/23/18 09/24/18 09/25/18 05:59 05:59 05:59 Intake Total 250 400 Output Total 900 Balance 250 -500 PT 12.5 SEC (12.0-15.0) 09/23/18 18:25 INR 0.97 (0.83-1.16) 09/23/18 18:25 - Physical Exam Constitutional: no apparent distress Eyes: PERRL Ears, Nose, Mouth, Throat: moist mucous membranes Cardiovascular: regular rate and rhythym, systolic murmur Respiratory: no respiratory distress, clear to auscultation Gastrointestinal: normoactive bowel sounds, soft, non-tender abdomen Skin: warm Musculoskeletal: full muscle strength Neurologic: AAOx3 Psychiatric: interacting appropriately ICD10 Worksheet Patient Problems: Problems Problem Status Onset Chest pain Acute Fatigue Acute Hypertension Acute Atrial flutter Acute CHF (congestive heart failure) Acute Cardiomegaly Acute Chronic Disease Mgmt/Transitional Care Acute Heart palpitations Acute History of coronary artery disease Acute Pain in left shoulder Acute
--- NOTE | 2018-09-24 16:15 | ECHO ---
[email or web address] [address] Main: [phone] Echocardiography Examination Transthoracic Name: DONIS MICHELLE MR#: [id number] Study Date: 09/24/2018 Study Time: 03:28 PM Date of : 1930 Age: 87 year(s) Height: 152.4 cm (60 in.) Weight: 58.06 kg (128 lb.) BSA: 1.54 m2 Gender: Female Examination: Echo Contrast: Image Quality: Rhythm: Heart Rate: 72 bpm BP: 164 mmHg/74 mmHg Indication: Fatigue, Shortness of breath Procedure Staff Referring Physician: Audiovisual Tech: Benitez English RDCS Reading Physician: Dimitrios Sagastume MD Requesting Provider: Ordering Physician: Lata Pitts Indication: Fatigue, Shortness of breath (1) Left ventricular systolic ejection faction was normal (>70%) - mild to moderate LVH - Grade III diastolic dysfunction (2) Normal RV size and function (3) Borderline biatrial dilation (R>L) (4) Trivial MR with mild mitral calcification (5) Trileaflet aortic valve with mild stenosis, moderate sclerosis, but no appreciable insufficiency - mean gradient was 20 mm Hg (6) Grossly normal tricuspid and pulmonic valves (7) Aortic root was 2.3 cm (8) Small pericardial effusion without tamponade physiology (9) In comparison to echocardiography from July 2018, the degree of MR (mild to mod) was not appreciate in this study. Prior echo with mean aortic valve gradient of 14 mm Hg, suggesting mild progression of the degree of aortic stenosis. Measurements Chambers AV/MV Label Value Normal Value Label Value Normal Value LVOT Vmax 1.19 m/s (0.7m/s - 1.1m/s) AV PGmax 34 mmHg LVOTd 1.9 cm (1.8cm - 2cm) AV PGmean 20 mmHg LVOT VTI 28.6 cm (18cm - 22cm) AV Vmax 2.93 m/s LVDd, 2D 4 cm (3.9cm - 5.3cm) FRIEDA (Vmax) 1.2 cm2 LVDs, 2D 2 cm (2.1cm - 4cm) FRIEDA (VTI) 1.3 cm2 IVSd, 2D 0.9 cm (0.6cm - 1.1cm) MV E Vmax 1.35 m/s LVPWd, 2D 1.1 cm MV A Vmax 1.21 m/s Patient: DONIS MICHELLE Study Date: 09/24/2018 Page 1 of 3 03:28 PM LVEF, 2D 81 % (54% - 74%) MV E/A 1.12 LVOT PGmean 3 mmHg MV E/E' lateral 39.6 LVOT Vmean 0.77 m/s MV E/E' septal 41.9 (0.45 - 1.25) RVDd, 2D 2.6 cm (1.9cm - 3.8cm) MV DT 327 ms LA Volume, BP 52 ml (22ml - 52ml) MV E' septal 0.03 m/s LADs, 2D 3.4 cm (2.7cm - 3.8cm) MV VTI 57.1 cm LAESV index, BP 33.8 ml/m2 MVA D (continuity eq.) 1.4 cm2 Additional Vessels MV PGmax 13 mmHg Label Value Normal Value MV PGmean 5 mmHg AoRoot, MM 2.3 cm (2.2cm - 3.7cm) MV PHT 0.12 s MVA PHT 1.8 cm2 MV E' lateral 0.03 m/s MV E/E' mean 45 MV PHT 119 ms MV E' mean 0.03 m/s TV/PV Label Value Normal Value PV PGmax 10 mmHg PV Vmax, Caliper 1.59 m/s (0.6m/s - 0.9m/s) Findings Left Ventricle: Left ventricle is normal in size. Global hypercontractility of the left ventricle. There is mild to moderate concentric left ventricular hypertrophy. There are no regional wall motion abnormalities. Grade III Diastolic Dysfunction. Right Ventricle: Normal size right ventricle. The RV function appears grossly normal. Left Atrium: The left atirum is borderline dilated. Right Atrium: The right atrium is mildly dilated. Mitral Valve: Trivial mitral regurgitation. Mild mitral valve stenosis. There is mild mitral calcification. Aortic Valve: Turbulent flow noted thru the aortic valve.. No significant aortic valve regurgitation. There is mild aortic stenosis. Aortic leaflets exhibit moderate calcification. The aortic valve is trileaflet. Aortic Valve Measurements AV PGmax is 34 mmHg. AV PGmean is 20 mmHg. Tricuspid Valve: No significant tricuspid regurgitation. Pulmonic Valve: Pulmonic leaflets are normal in appearance and function. Aorta: The aorta is normal. The aortic root size in M-mode measures 2.3 cm. Aorta Measurements AoRoot, MM is 2.3 cm. Pericardium: A small pericardial effusion was identified. Echo findings are not consistent with tamponade physiology. Exam Details Procedure Ordered: Echo Patient: DONIS MICHELLE Study Date: 09/24/2018 Page 2 of 3 03:28 PM (No Signature Object) Patient: DONIS MICHELLE Study Date: 09/24/2018 Page 3 of 3 03:28 PM [id number]
--- NOTE | 2018-09-24 20:58 | CPEKG ---
Test Reason : OPEN Blood Pressure : / mmHG Vent. Rate : 075 BPM Atrial Rate : 075 BPM P-R Int : 183 ms QRS Dur : 092 ms QT Int : 406 ms P-R-T Axes : -20 070 110 degrees QTc Int : 454 ms Sinus rhythm Probable anteroseptal infarct, recent Confirmed by Max Low ([id number]) on 09/24/2018 8:57:32 PM Referred By: Max Low Confirmed By:Max Low
[2018-09-24] MEDS: BIMATOPROST 0.01% 2.5 ML OPHT.BTL EACHEYE SCH (22:06)
[2018-09-25] MEDS: FUROSEMIDE 40 MG TAB PO SCH (05:08)
[2018-09-25] MEDS: HEPARIN 5,000 UNIT/0.5 ML INJ SC SCH ×3 (05:08→21:40)
[2018-09-25] MEDS: LEVOTHYROXINE 50 MCG TAB PO SCH (05:08)
[2018-09-25] MEDS: PANTOPRAZOLE SODIUM 40 MG TAB PO SCH (08:47)
[2018-09-25] MEDS: ISOSORBIDE MONONITRATE 30 MG TAB.SR PO SCH (08:47)
[2018-09-25] MEDS: hydrALAZINE 25 MG TAB PO SCH ×3 (08:48→21:40)
[2018-09-25] MEDS: ATORVASTATIN CALCIUM 20 MG TAB PO SCH (08:48)
[2018-09-25] MEDS: DILTIAZEM CD 180 MG CAP PO SCH ×2 (08:48→20:16)
[2018-09-25] MEDS: ASPIRIN EC 81 MG TAB PO SCH (08:48)
--- NOTE | 2018-09-25 11:10 | PDCARPN ---
Cardiology Progress Note Chief Complaint: Patient feeling well today, and wanting to go home Assessment/Plan: Assessment: 09-25-18 Patient feeling well today. Reasonably good sleep overnight. No chest pains or pressure. No PND or orthopnea. Blood pressures elevated over course of this stay. No appreciation of atrial fibrillation at present. No anticoagulation given numerous risks for bleeding. Patient is a high surgical risk for intervention on mitral valve pathology, and in the outpatient setting, this has been discussed openly for some time. 09-24-18 Patient is an 87 y/o female with past medical history of DM (with peripheral neuropathy), HTN, HLP, interstitial lung disease on chronic home oxygen at 3 liters/min, CRI, breast cancer, hypothyroidism, CAD with stents (noted to be patient on angiography from 2015), CHF (normal LVEF by echo in July 2018), atrial fibrillation (not on anticoagulation given anemia, with [id number] score of 7), anemia (chronic, and without clear cause), and mitral stenosis ( mild to moderate MS), who presented to [facility] with complaints of fatigue, "chest fluttering" and epigastric discomfort. When the patient was seen, she was without cardiovascular complaints. No chest pains or pressure, no PND or orthopnea. No irregularity to the heart was noted by the patient when she was seen by me this morning. In the [facility] ER, the patient voiced fatigue without nausea or emesis, fevers or chills. Outpatient office note from the end of August 2018 (LARRY Abdi) was reviewed prior to the patient being seen. No cardiac biomarker elevation was noted (troponin), but mild elevation to BNP was appreciated. CXR with cardiomegaly, but no acute findings consistent with CHF. Ultrasound of the abdomen without pathology appreciated. Plan: (1) Would maintain therapy on Diltiazem as at present for some degree of both rate and rhythm control (2) Would add a low dose of metoprolol tartrate to the pm (25 mg) in an attempt to have better blood pressure control (and maybe some degree of rhythm control as well) (3) Statins should continue for history of HLP (4) Synthroid for history of hypothyroidism (5) Hydralazine to continue for history of HTN as well (given the elevations in blood pressure that have been noted) (6) Continue therapy on ASA given the noted CV risks (7) Patient should likely stay overnight with the addition of low dose metoprolol to ensure tolerance prior to discharge to home Subjective: No cardiovascular complaints Objective: Vital Signs (8 Hrs) Temp Pulse Resp BP Pulse Ox 09/25/18 09:40 75 144/66 H 09/25/18 08:48 70 170/60 H 09/25/18 08:47 170/60 H 09/25/18 07:36 36.6 C 65 18 188/69 H 99 09/25/18 04:00 36.6 C 79 16 170/76 H 93 Intake/Output (24 Hrs) 09/24/18 09/25/18 09/26/18 05:59 05:59 05:59 Intake Total 780 Output Total 675 Balance 105 Intake: Oral (ml) 780 Output: Urine (ml) 675 Toilet 675 Other: Intake Quantity Yes Sufficient Number of Voids Toilet 1 Number of Stools Toilet 0 Result Diagrams: 09/24/18 07:58 09/24/18 07:58 Telemetry: sinus rhythm - Physical Exam Constitutional: WDWN, healthy appearing, no apparent distress Eyes: PERRL, EOMI Ears, Nose, Mouth, Throat: moist mucous membranes Cardiovascular: regular rate and rhythm, systolic murmur (III/ NOVA), pulses symmetric bilat, No jugular vein distention Peripheral Pulses: 2+: dorsalis-pedis (R), dorsalis-pedis (L) Respiratory: clear to auscultate bilat, no crackles, no wheezes Gastrointestinal: normoactive bowel sounds Skin: no rashes, no edema Musculoskeletal: no muscular tenderness Neurologic: AAOx3, CN II-XII grossly intact Psychiatric: cooperative, interactive, following commands ICD10 Worksheet Patient Problems: Problems Problem Status Onset Chest pain Acute Fatigue Acute Hypertension Acute Atrial flutter Acute CHF (congestive heart failure) Acute Cardiomegaly Acute Chronic Disease Mgmt/Transitional Care Acute Heart palpitations Acute History of coronary artery disease Acute Pain in left shoulder Acute
--- NOTE | 2018-09-25 12:22 | PDMN ---
Medical Necessity Medical necessity: Change to IP, as of 09/24/18, per MD & MCG [id number]; los >2 mn for ongoing management of palpitations w/fatigue, epigastric pain & mod to severe mitral stenosis; query recurrent afib; requiring further workup/ monitoring & med management; comorbid advanced age, extensive medical hx
--- NOTE | 2018-09-25 14:05 | HOSPPROG ---
Hospitalist Progress Note Assessment/Plan: 87 year old female admitted with hypertensive urgency. HTN urgency - BP labile. Up as high as 188 systolic this am. Reviewed with cardiology and plan to add lopressor 25mg HS. Fatigue / palpitations - query recurrent A fib, currently in NSR -cont to monitor on telemetry -check echo Abdominal pain / diarrhea - GI PCR neg, no more diarrhea, pain improved. U/S reviewed, nothing acute. Mitral stenosis - cards following -repeat echo today -cont to monitor on telemetry CAD/stent 2003 - doubt ischemia, trops neg -cont ASA, statin Chronic dHF - appears euvolemic -cont home lasix Paroxysmal A fib - NSR here, it's possible her symptoms were related to A fib, not on AC due to anemia -cont telemetry monitoring -cont dilt for rate control ILD - on 3L baseline, no e/o acute flare CKD - Cr at baseline, 1.7 DVT PPLX - Lovenox Full code Patient chart, imaging and records reviewed as she is new to me. Subjective: no complaints this morning. no sob, cp, fevers or other symptoms. Objective: Vital Signs Temp Pulse Resp BP Pulse Ox 36.6 C 77 18 169/65 H 98 09/25/18 11:59 09/25/18 11:59 09/25/18 11:59 09/25/18 11:59 09/25/18 11:59 09/24/18 09/25/18 09/26/18 05:59 05:59 05:59 Intake Total 780 Output Total 675 Balance 105 PT 12.5 SEC (12.0-15.0) 09/23/18 18:25 INR 0.97 (0.83-1.16) 09/23/18 18:25 - Time Spent With Patient Time Spent with Patient: greater than 35 minutes Time Spent with Patient: Greater than 35 minutes spent on this patients care, greater than 50% of time spent counseling, educating, and coordinating care regarding the above mentioned plan. - Physical Exam Constitutional: no apparent distress, appears nourished, not in pain Eyes: PERRL, anicteric sclera, EOMI Ears, Nose, Mouth, Throat: moist mucous membranes, hearing normal, ears appear normal, no oral mucosal ulcers Cardiovascular: regular rate and rhythym, no murmur, rub, or gallop Respiratory: no respiratory distress, no rales or rhonchi, clear to auscultation Gastrointestinal: normoactive bowel sounds, soft, non-tender abdomen, no palpable masses Genitourinary: no bladder fullness, no bladder tenderness, no renal bruits Skin: no rashes or abrasions, no fluctuance, no induration Musculoskeletal: full muscle strength, no muscle tenderness, normal joint ROM Neurologic: AAOx3, sensation intact bilaterally Psychiatric: interacting appropriately, not anxious, not encephalopathic, thought process linear Lymph, Heme, Immunologic: no cervical LAD, no supraclavicular LAD ICD10 Worksheet Patient Problems: Problems Problem Status Onset Chest pain Acute Fatigue Acute Hypertension Acute Atrial flutter Acute CHF (congestive heart failure) Acute Cardiomegaly Acute Chronic Disease Mgmt/Transitional Care Acute Heart palpitations Acute History of coronary artery disease Acute Pain in left shoulder Acute
[2018-09-25] MEDS: BIMATOPROST 0.01% 2.5 ML OPHT.BTL EACHEYE SCH (20:17)
[2018-09-25] MEDS ORDERED: METOPROLOL TARTRATE 25 MG TAB PO SCH (21:00)
[2018-09-26] MEDS: HEPARIN 5,000 UNIT/0.5 ML INJ SC SCH ×2 (05:35→16:21)
[2018-09-26] MEDS: LEVOTHYROXINE 50 MCG TAB PO SCH (05:35)
[2018-09-26] MEDS: FUROSEMIDE 40 MG TAB PO SCH (05:35)
[2018-09-26] MEDS: ISOSORBIDE MONONITRATE 30 MG TAB.SR PO SCH (08:45)
[2018-09-26] MEDS: ATORVASTATIN CALCIUM 20 MG TAB PO SCH (08:45)
[2018-09-26] MEDS: ASPIRIN EC 81 MG TAB PO SCH ×2 (08:45→08:47)
[2018-09-26] MEDS: DILTIAZEM CD 180 MG CAP PO SCH (08:47)
[2018-09-26] MEDS: hydrALAZINE 25 MG TAB PO SCH (08:48)
[2018-09-26] MEDS: PANTOPRAZOLE SODIUM 40 MG TAB PO SCH (08:49)
[2018-09-26 11:15] VITALS: BP 158/51
--- NOTE | 2018-09-26 12:41 | PDCARPN ---
Cardiology Progress Note Chief Complaint: hypertensive urgency Assessment/Plan: Assessment: 87 year PMH mod MS/MR, htn, CAD, PAF, anemia, ILD with CHRF on 3 lpm continuously of O2, CKD, admitted with fatigue and palpitations. Found to have hypertensive urgency. Echo from this admission shows EF >70, mild-mod LVH, borderline biatrial dilation, trivial MR, mild MS/. Plan: #. HTN urgency: BP gradually improving with addition of Dilt BID and now Lopressor maintain those as well as Hydralazine at curent regimen #. Fatigue/palpitations: no AF seen on monitoring #. Mitral stenosis: mild-mod / stable #. CAD/stent 2004: trops neg and ECG appears nonischemic Last [facility] in 2016 with patent stents #. Chronic dHF: appears euvolemic she may stay on home dose of Lasix #. Paroxysmal A fib: no AF on monitoring [id number] of 5 not on AC 2/2 anemia #. ILD: on 3Lpm baseline, no e/o acute flare #. CKD: Cr at baseline, 1.7 OK to d/c from cardiology perspective. Will ask for sooner appt with Dr. Reyna. 09/26/18 12:16 Subjective: Feels improved. No fatigue or palps. Reviewed/Discussed With: hospitalist (Dr. Sorto) Objective: Vital Signs (8 Hrs) Temp Pulse Resp BP Pulse Ox 09/26/18 11:13 98.0 F 55 L 16 158/51 H 98 09/26/18 07:10 98.4 F 54 L 18 158/85 H 99 Intake/Output (24 Hrs) 09/25/18 09/26/18 09/27/18 05:59 05:59 05:59 Intake Total 780 450 Output Total 675 550 Balance 105 -100 Intake: Oral (ml) 780 450 Output: Urine (ml) 675 550 Toilet 675 550 Other: Intake Quantity Yes Sufficient Number of Voids Toilet 1 Number of Stools Toilet 0 Result Diagrams: 09/24/18 07:58 09/24/18 07:58 Telemetry: SR - Physical Exam Constitutional: no apparent distress Eyes: PERRL Ears, Nose, Mouth, Throat: moist mucous membranes Cardiovascular: regular rate and rhythm, systolic murmur Respiratory: clear to auscultate bilat, no crackles Neurologic: AAOx3 Psychiatric: cooperative, interactive ICD10 Worksheet Patient Problems: Problems Problem Status Onset Chest pain Acute Fatigue Acute Hypertension Acute Atrial flutter Acute CHF (congestive heart failure) Acute Cardiomegaly Acute Chronic Disease Mgmt/Transitional Care Acute Heart palpitations Acute History of coronary artery disease Acute Pain in left shoulder Acute
--- NOTE | 2018-09-26 14:19 | ASMTLACE ---
LACE Length of stay for Answers: 3 days current admission Acuity / Level of Answers: Yes Care: Did the patient have an inpatient admission? Comorbidities - select Answers: Coronary Artery Disease all that apply Diabetes (uncontrolled or controlled) Moderate or severe liver or renal disease Previous myocardial infarction Other Notes: HTN # of Emergency department Answers: 3-4 visits in the last 6 months Score: 18 Date Signed: 09/26/2018 02:18 PM Electronically Signed By:Toshia Middleton RN
--- NOTE | 2018-09-26 14:21 | ASMTCMCOM ---
CM Note CM Note Notes: Reviewed pt in rounds, per RN pt is independent and will return to [facility] with assistance from family. CM available should any of her needs change. DC Plan: Independent Date Signed: 09/26/2018 02:20 PM Electronically Signed By:Toshia Middleton RN
--- NOTE | 2018-09-26 16:21 | PDDCSUM ---
Discharge Summary Discharge Summary: Discharge diagnosis Hypertensive urgency Abdominal pain and diarrhea Mitral stenosis Coronary artery disease Paroxysmal AFib CKD Interstitial lung disease Chronic hypoxemic respiratory failure The patient was admitted with hypertensive urgency and palpitations. She was started on diltiazem and hydralazine with p.r.n. Medications as well. Echocardiogram was obtained cardiology was consulted. Her diltiazem and hydralazine were up titrated and eventually Lopressor was added as well. Her blood pressure trended down but remained labile. The decision was made to obtain an adequate level of control of her blood pressure without risk of hypotension. She tolerated the up titration of medication without any issue. Her echo showed any ejection fraction of greater than 70%. She was discharged to follow up with her primary care physician as well as Cardiology. Disposition Home with home health Medications Diltiazem 180 mg twice daily Hydralazine 25 mg three times daily Lopressor 25 mg hs Other medications as per medication reconciliation I spent over 30 min on the discharge of this patient
== END 2018-09-26 15:37 | disposition home or self-care (01) | DRG 305 ==
LOC: EDUNIT# → F2W 22:13 → OBSVTOIN 09-24 15:11
PROVIDERS: ADMIT Internal Medicine; ATTEND Internal Medicine
DX: I16.0 Hypertensive urgency (principal); J84.9 Interstitial pulmonary disease, unspecified; J96.11 Chronic respiratory failure with hypoxia; I13.0 Hypertensive heart and chronic kidney disease with heart failure and stage 1 through stage 4 chronic kidney disease, or unspecified chronic kidney disease; I50.32 Chronic diastolic (congestive) heart failure; N18.9 Chronic kidney disease, unspecified; R19.7 Diarrhea, unspecified; I34.2 Nonrheumatic mitral (valve) stenosis; I25.10 Atherosclerotic heart disease of native coronary artery without angina pectoris; I48.0 Paroxysmal atrial fibrillation; I27.20 Pulmonary hypertension, unspecified; E11.43 Type 2 diabetes mellitus with diabetic autonomic (poly)neuropathy; E78.5 Hyperlipidemia, unspecified; E03.9 Hypothyroidism, unspecified; Z95.5 Presence of coronary angioplasty implant and graft; Z85.3 Personal history of malignant neoplasm of breast; K44.9 Diaphragmatic hernia without obstruction or gangrene
CPT/HCPCS: 84484-ER; 97165-GO; 97530-GO; 97535-GO; G0378; J0360; J1644

== ENCOUNTER 2018-10-08 12:36 | Day surgery (SDC) | payer OTHER, MEDICARE ==
[2018-10-08] MEDS ORDERED: LIDOCAINE 1% 5 ML SDV SC ONE (12:46)
--- NOTE | 2018-10-08 14:05 | PDCTREPORT ---
Cardiothoracic Procedure Rpt Cardiothoracic Procedure Report: Procedure: Implantation of a loop recorder Indications: Paroxysmal atrial fibrillation with episodes requiring admission After obtaining informed consent patient brought to the [facility] for further care. The left chest was sterilely prepped and draped. In the 2nd interspace a small site was anesthetized with 2% xylocaine. Stab wound was made. Using the [employer] loop recorder insertion tool a loop recorder was inserted under the skin. 2 kuldip were used to close the incision. Pressure dressing was applied the patient is taken to recovery for continued care. The device is a confirm Rx serial 3. [id number] Conclusion successful implantation of a loop recorder Patient Problems: Problems Problem Status Onset Fatigue Acute Chronic Disease Mgmt/Transitional Care Acute Chest pain Acute Pain in left shoulder Acute History of coronary artery disease Acute Atrial flutter Acute Hypertension Acute CHF (congestive heart failure) Acute Cardiomegaly Acute Heart palpitations Acute
== END 2018-10-08 14:09 | disposition home or self-care (01) ==
LOC: FCATH 12:36
PROVIDERS: ATTEND Internal Medicine Interventional Cardiology
PROC: 0JH632Z Insertion of Monitoring Device into Chest Subcutaneous Tissue and Fascia, Percutaneous Approach (ICD-10-PCS; principal; 2018-10-08)
DX: I48.0 Paroxysmal atrial fibrillation (principal); F41.9 Anxiety disorder, unspecified; I10 Essential (primary) hypertension
CPT/HCPCS: C1764

== ENCOUNTER 2018-10-23 21:07 | Observation (INO) | payer OTHER, MEDICARE | END 2018-10-24 17:37 | disposition home or self-care (01) | LOC: F2W 22:27 ==

== ENCOUNTER → 2018-10-30 | Outpatient (CLI) | payer OTHER, MEDICARE | LOC: FIMAGING 14:10 ==